=== PATIENT | male | born 1955 | race Caucasian/White ===

== ENCOUNTER 2018-08-31 14:17 | Outpatient (CLI) | payer MEDICARE, OTHER ==
[2018-08-31 17:41] LABS: #Basophils 0.1 thou/uL (0.0-0.2); #Eosinphils 0.5 thou/uL (0.0-0.7); #Lymphocytes 2.5 thou/uL (1.20-3.40); #Monocytes 0.8 thou/uL (0.11-0.59); %Basophils 1.3 % (0.0-1.0); %Eosinophils 6.1 % (0.0-10.0); %Lymphocytes 27.9 % (21.0-51.0); %Monocytes 8.6 % (0.0-10.0); %Neutrophils 56.1 % (42.0-75.0); Mean Corpuscular HGB CONC 33.7 g/dL (32.0-36.0); Mean Corpuscular Hemoglobin 31.9 pg (27.0-31.0); Mean Corpuscular Volume 94.6 fL (78.0-98.0); Mean Platelet Volume 7.8 fL (7.4-10.4); Platelet Count 297 thou/uL (130-400); RBC Distribution Width 11.6 % (11.5-14.5); White Blood Cell (WBC) Count 8.9 thou/uL (4.8-10.8)
[2018-08-31 18:02] LABS: ALT (SGPT) 32 U/L (8-55); AST (SGOT) 23 U/L (5-34); Albumin 4.5 g/dL (3.4-4.8); Alkaline Phosphatase 138 U/L (40-150); Anion Gap 13 mmol/L (10-20); BUN (Urea Nitrogen) 11 mg/dL (8.4-25.7); Bilirubin, Total 0.2 mg/dL (0.2-1.2); Calc. Creatinine Clearance 0 mL/min (70-130); Calcium 9.4 mg/dL (7.8-10.44); Carbon Dioxide 24 mmol/L (23-31); Chloride 107 mmol/L (98-107); Estimated GFR-MDRD Greater than 90; Globulin 3.2 g/dL (2.4-3.5); Glucose 92 mg/dL (80-115); Potassium 3.9 mmol/L (3.5-5.1); Protein, Total 7.7 g/dL (5.8-8.1); Sodium 140 mmol/L (136-145)
== END 2018-08-31 14:18 | disposition home or self-care (01) ==
LOC: LABBT 14:17
PROVIDERS: ATTEND Internal Medicine Cardiovascular Disease
DX: Z01.812 Encounter for preprocedural laboratory examination (principal); R94.39 Abnormal result of other cardiovascular function study
CPT/HCPCS: 80053; 85025

== ENCOUNTER 2018-09-03 05:47 | Day surgery (SDC) | payer MEDICARE, OTHER ==
[2018-09-03 07:20] LABS: INR-International Normal Ratio 1.6; PTT 31.2 SEC (22.9-36.1)
[2018-09-03] MEDS ORDERED: Lidocaine 1% (PF) 30 ML VIAL ONE (07:33)
[2018-09-03] MEDS ORDERED: Midazolam HCl 2 mg/2 ml Vial ONE (08:00)
[2018-09-03] MEDS ORDERED: Fentanyl 100 MCG/2 ML VIAL ONE (08:00)
[2018-09-03] MEDS ORDERED: Heparin 10,000 UNITS/1 ML VIAL ONE (08:21)
[2018-09-03] MEDS ORDERED: Iopamidol 370 76% 50 ML VIAL FS ONE (15:47)
[2018-09-03] MEDS ORDERED: Iopamidol 370 76% 100 ML VIAL ONE (15:47)
== END 2018-09-03 12:00 | disposition home or self-care (01) ==
LOC: CCL 05:47 → EEVIPCON 16:15
PROVIDERS: ATTEND Internal Medicine Cardiovascular Disease
PROC: 4A023N7 Measurement of Cardiac Sampling and Pressure, Left Heart, Percutaneous Approach (ICD-10-PCS; principal; 2018-09-03)
PROC: B2111ZZ Fluoroscopy of Multiple Coronary Arteries using Low Osmolar Contrast (ICD-10-PCS; 2018-09-03)
DX: I25.10 Atherosclerotic heart disease of native coronary artery without angina pectoris (principal); E78.5 Hyperlipidemia, unspecified; G40.109 Localization-related (focal) (partial) symptomatic epilepsy and epileptic syndromes with simple partial seizures, not intractable, without status epilepticus; F17.210 Nicotine dependence, cigarettes, uncomplicated; Z86.718 Personal history of other venous thrombosis and embolism; Z86.73 Personal history of transient ischemic attack (TIA), and cerebral infarction without residual deficits; Z79.01 Long term (current) use of anticoagulants; Z79.82 Long term (current) use of aspirin; Z79.899 Other long term (current) drug therapy
CPT/HCPCS: 36415; 76942; 85347; 85610; 85730; 93458; 93571; C1760; C1769; C1887; J0153; J1644; J2001; J2250; J3010; Q9967

== ENCOUNTER 2018-10-04 20:24 | Inpatient (IN) | payer MEDICARE, OTHER ==
--- NOTE | 2018-10-04 22:00 | CT ---
CT Chest Abd Pelvis WO Con HISTORY: Patient with a history of bladder cancer. Brain metastases and possible lung mass. COMPARISON: None. FINDINGS: There is a right upper lobe lung mass measuring approximately 1.8 cm in size. There are sma ll blebs seen in both lung apices. There is some reticular scarring within the right and left lung bases. No pleural effusions are demonstrated. Changes of centrilobular emphysema are noted. The lack of IV contrast degrades detail but no significant mediastinal or hilar adenopathy is seen. C oronary artery calcifications are present. CT of abdomen performed without contrast enhancement: There is residual contrast seen related to a CT done at outside facility. Due to the time frame from the contrast administration assessment of liver is limited but no masses are seen. The spleen pancreas and gallbladder regions appear unremarka ble. Vicarious excretion of contrast within the gallbladder is noted. Right and left adrenal glands are normal in appearance. The right and left kidneys are normal in size . An exophytic mid pole left renal cyst is noted. An IVC filter is present. Small subcentimeter periaortic lymph nodes are seen. No significant mesenteric lymphadenopathy. CT of pelvis performed without contrast: There is contrast within the bladder from the previous CT ex amination. No bladder mass is identified. Prostate is mildly prominent. No pelvic lymphadenopathy or mass. There is scoliotic change to the spine. IMPRESSION: 1. 1.8 cm right upper lobe lung mass very suspicious for neoplasm. 2. Centrilobular emphysema. Other incidental findings as noted above.
[2018-10-05 01:49] VITALS: BMI 23.7
[2018-10-05] MEDS ORDERED: Calcium Carbonate 500 MG ChewTAB PO PRN (04:19)
[2018-10-05] MEDS ORDERED: Ondansetron ODT 4 MG TAB PO PRN (04:19)
[2018-10-05] MEDS: Sodium Chloride 0.9% 1,000 ML IV SCH ×2 (04:45→19:51)
[2018-10-05 04:51] LABS: #Lymphocytes 1.5 thou/uL (1.20-3.40); #Monocytes 0.7 thou/uL (0.11-0.59); #Neutrophils 6.2 thou/uL (1.40-6.50); %Basophils 0.6 % (0.0-1.0); %Eosinophils 0.6 % (0.0-10.0); %Lymphocytes 18.1 % (21.0-51.0); %Monocytes 7.8 % (0.0-10.0); Hemoglobin 14.1 g/dL (14.0-18.0); Mean Corpuscular HGB CONC 33.6 g/dL (32.0-36.0); Mean Corpuscular Hemoglobin 31.5 pg (27.0-31.0); Mean Corpuscular Volume 93.9 fL (78.0-98.0); Mean Platelet Volume 7.8 fL (7.4-10.4); Platelet Count 283 thou/uL (130-400); RBC Distribution Width 11.5 % (11.5-14.5); Red Blood Cell (RBC) Count 4.48 mill/uL (4.70-6.10); White Blood Cell (WBC) Count 8.5 thou/uL (4.8-10.8)
[2018-10-05 04:56] LABS: INR-International Normal Ratio 2.6; PTT 37.7 SEC (22.9-36.1); Prothrombin Time 27.6 SEC (12.0-14.7)
[2018-10-05 05:13] LABS: ALT (SGPT) 16 U/L (8-55); AST (SGOT) 21 U/L (5-34); Alkaline Phosphatase 123 U/L (40-150); Anion Gap 12 mmol/L (10-20); BUN (Urea Nitrogen) 12 mg/dL (8.4-25.7); Bilirubin, Total 0.3 mg/dL (0.2-1.2); Calc. Creatinine Clearance 137 mL/min (70-130); Calcium 9.1 mg/dL (7.8-10.44); Carbon Dioxide 22 mmol/L (23-31); Chloride 108 mmol/L (98-107); Estimated GFR-MDRD Greater than 90; Globulin 2.8 g/dL (2.4-3.5); Glucose 93 mg/dL (80-115); Magnesium 2.1 mg/dL (1.6-2.6); Potassium 4.3 mmol/L (3.5-5.1); Protein, Total 6.8 g/dL (5.8-8.1); Sodium 138 mmol/L (136-145)
[2018-10-05] MEDS ORDERED: Dexamethasone 4 mg/ml Vial ONE ×2 (05:31→12:06)
[2018-10-05] MEDS: Dexamethasone 4 mg/ml Vial SLOW IVP SCH ×4 (05:34→23:27)
[2018-10-05] MEDS: Acetaminophen 325 MG TAB PO PRN (09:40)
[2018-10-05] MEDS ORDERED: Acetaminophen 325 MG TAB ONE (09:41)
--- NOTE | 2018-10-05 09:51 | HP ---
PRIMARY CARE PHYSICIAN: Dr. Corky Overton at [facility]. CHIEF COMPLAINT: Patient is a transfer from [facility] Emergency Department for abnormal imaging. CHIEF COMPLAINT: Blurriness of vision. HISTORY OF PRESENT ILLNESS: The patient is a 63-year-old male with history of CVA, on anticoagulation; seizure disorder; bladder cancer; presented to [facility] with blurriness of vision that started 1 day ago. It was sudden in onset. He was unable to focus on an object. He had mild headache that has resolved. No double vision, facial asymmetry, weakness of any of his extremities reported. No recent injuries or fall reported. PAST MEDICAL HISTORY: 1. History of cerebrovascular accident. 2. Seizure disorder. 3. Gastroesophageal reflux disease. 4. Hyperlipidemia. 5. Bladder cancer. 6. Chronic venous ulcer in the left foot that has healed. 7. Benign prostatic hypertrophy. PAST SURGICAL HISTORY: 1. Right knee surgery. 2. Cystoscopy. ALLERGIES: NO KNOWN DRUG ALLERGIES. CURRENT HOME MEDICATIONS: Family to bring the accurate list of medications. He is also on Coumadin and Dilantin. Dosages unavailable. SOCIAL HISTORY: Patient has a [id number] smoking history. Continues to smoke up to one pack a day. No alcohol or drug use reported. He lives at home with his family. FAMILY HISTORY: Negative for premature coronary artery disease. REVIEW OF SYSTEMS: All other review of systems was reviewed and was found negative. PHYSICAL EXAMINATION: VITAL SIGNS: Showed temperature 97.8, respirations 20, pulse rate of 68, blood pressure of 150/89 with O2 saturation 96% on room air. GENERAL: 63-year-old male, in no apparent distress. HEENT: Head, atraumatic and normocephalic. Sclerae anicteric. Pupils 3 mm bilaterally. His vision was 20/200 in the left eye and 20/200 in the right eye at [facility]. No oral lesion appreciated. NECK: Supple. No JVD appreciated. No carotid bruit. LUNGS: Clear to auscultation bilaterally. No wheezing, rales, or rhonchi. HEART: S1, S2 present. Regular rate and rhythm. No rubs or gallops. ABDOMEN: Soft, nontender. Bowel sounds present. EXTREMITIES: No edema or calf tenderness. NEUROLOGY: Patient has history of CVA with left-sided weakness. No new focal findings appreciated. He has chronic facial droop and speech deficit per patient report. PSYCHIATRY: Patient is alert, awake, and oriented x3. SKIN: Warm and dry. LYMPH NODE: No palpable lymph nodes in the neck. PERIPHERAL VASCULAR: Radial pulses palpable bilaterally. MUSCULOSKELETAL: No joint swelling or tenderness. LABORATORY FINDINGS: Lab findings from [facility]; WBC was 8.9 with hemoglobin 14.6, hematocrit 43.6, platelet count of 281. Chemistry showed sodium 142, potassium 4.3, chloride 107, bicarb 28, BUN 12, creatinine 0.7. INR was 2.7. Dilantin level was 15.9. EKG by my review showed sinus rhythm without significant ST-T wave changes. CT scan of the brain without contrast showed findings concerning for left occipital lobe mass with vasogenic edema within the white matter. He also has an old right MCA infarct. Chest x-ray at [facility] showed right apical lung mass. CT scan of the chest, abdomen, and pelvis done at this facility showed 1.8 cm right upper lobe lung mass, very suspicious for neoplasm with centrilobular emphysema. IMPRESSION: 1. Visual deficit secondary to left occipital lobe brain mass with vasogenic edema. 2. Right upper lobe lung mass of 1.8 cm concerning for neoplasm. 3. 18-[id number]-pyyd smoking history. 4. 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 5. Seizure disorder, on Dilantin. 6. History of bladder cancer. 7. Benign prostatic hypertrophy. 8. Gastroesophageal reflux disease. 9. Hyperlipidemia. PLAN: The patient will be monitored in oncology floor. Home medications will be verified with the family when they arrive. Coumadin will be held. We will consult Neurosurgery, Pulmonary, as well as Ophthalmology. Neuro checks q.4 hourly. Dexamethasone has been started. We will continue dexamethasone 4 mg q.6 hourly, Protonix 40 mg p.o. daily. We will keep him n.p.o. There was no active bleeding on the CT scan of the brain. We will discuss with Neurosurgery if warfarin needs to be reversed. Plan of care was discussed with the patient in detail. He stated understanding. Job ID: [id number]
--- NOTE | 2018-10-05 10:14 | MRI ---
EXAM: MRI of the brain without and with contrast HISTORY: Left-sided weakness. History of stroke. History of bladder cancer. COMPARISON: CT brain 04/06/2009 TECHNIQUE: Multiplanar multisequence MR images were obtained of the brain without and with IV contras t. FINDINGS: There is a large area of encephalomalacia involving the right frontal, parietal, and temporal lobes c onsistent with a right MCA distribution infarction. There is a 3.7 cm heterogeneously enhancing mass in the left parieto-occipital region with surroundin g vasogenic edema. No significant midline shift or downward herniation. No restricted diffusion. No hydronephrosis. No extra-axial fluid collection or intracranial hemorrhage. The right internal carotid artery flow void is absent. Corpus callosum, pituitary, and craniocervical junction are within normal limits. The calvarium and overlying soft tissues are unremarkable. Mucosal thickening is seen in the paranasal sinuses. A small amount of fluid is seen in the bilateral mastoid air cells. IMPRESSION: 1. Enhancing mass in the left parieto-occipital region likely represents a metastatic lesion to the b rain 2. Remote right MCA distribution infarction
--- NOTE | 2018-10-05 14:00 | PRG ---
DATE OF SERVICE: 10/05/2018 I reviewed the case with Mika An yesterday when he is in [facility]. He has not been fully admitted to the hospital yet remains in the emergency department. I reviewed his imaging and I am concerned that he has metastatic lesion in the parieto-occipital region in the left hemisphere. There is some surrounding vasogenic edema. I believe this is lung cancer as there is a right upper lobe lesion in the lung. Of course, the lung lesion, the mediastinal adenopathy and the brain all could be metastatic from elsewhere, but the chances are it is from the lung. I am going to follow up with the patient tomorrow and discuss surgical intervention for the lesion this week. Job ID: [id number]
--- NOTE | 2018-10-05 15:43 | PRG ---
DATE OF SERVICE: 10/05/2018 SUBJECTIVE: The patient is seen and examined at the bedside. He is still in the emergency room 17. He is feeling significantly better. His visual problem is improved to his baseline. He does not have any chest pain. He does not have any headache. OBJECTIVE: VITAL SIGNS: Blood pressure is 117/62, pulse is 70, and respiratory rate is 15. HEENT: Eyes; pupils are responding to light properly. Sclerae are nonicteric. Conjunctivae are pinkish. He has left-sided droop. NECK: Supple. LUNGS: Clear. HEART: S1 and S2 normal. No S3. No S4. ABDOMEN: Soft, nontender, and nondistended. EXTREMITIES: No clubbing or cyanosis. There is 1+ peripheral edema over the left lower extremity. NEUROLOGIC: He follows my commands. He has left facial droop. His left-sided is paralyzed with minimal function of the left upper extremity and no function of the left lower extremity. LABORATORY DATA: White count of 8.5, hemoglobin 14.1, hematocrit 42.1, platelet count is 283,000. INR is 2.6, PT is 27.6, APTT 37.7. Sodium of 138, potassium 4.3, chloride 108, CO2 of 22, BUN 12, and creatinine 0.68. The rest of chemistry is within normal limits. IMPRESSION: 1. Visual defect, most likely secondary to swelling of the brain and mass-effect of occipital lobe brain mass, pain, resolved. 2. Right upper lobe lung mass concerning for neoplasm. 3. History of right middle cerebral artery with left-sided hemiplegia, on anticoagulation. 4. Seizures secondary to cerebrovascular accident, on Dilantin. 5. History of bladder cancer. 6. Benign prostatic hypertrophy. 7. Gastroesophageal reflux disease. 8. Hyperlipidemia. PLAN: We will hold his Coumadin until it is clear whether he will have biopsy done of this right lung mass. We will continue his Dilantin at 200 mg in the morning and 300 mg at bedtime to obtain the level of Dilantin. We will continue his dexamethasone 4 mg every 6 hours IV push. The patient was seen by Dr. Baldwin for neurosurgical evaluation. He will still have evaluation by referral specialist, oncologist, and cast iron drain pipe layer. We will continue gentle hydration. Job ID: [id number]
--- NOTE | 2018-10-05 18:06 | CON ---
DATE OF CONSULTATION: 10/05/2018 REASON FOR CONSULTATION: 1.5 cm right upper lobe mass. HISTORY OF PRESENT ILLNESS: The patient is a 63-year-old male, who comes to the hospital last night after having an episode of blindness that has since resolved. He had an MRI of the head which showed an occipital mass on the left side. As part of the workup, he had a CT of the chest, abdomen, pelvis. He is found to have a 1.5 cm mass in the right upper lobe peripherally. The patient has a long history of smoking. He is currently smoking about a pack per day, but has smoked up to two packs per day in the past. He has a history of bladder cancer, but that was back in 2001 and he says that has been in remission. PAST MEDICAL HISTORY: 1. Cerebrovascular accident. 2. Seizure disorder. 3. Gastroesophageal reflux. 4. Hyperlipidemia. 5. Bladder cancer. 6. Chronic venous ulcer, left foot. 7. Benign prostatic hypertrophy. PAST SURGICAL HISTORY: 1. Knee surgery. 2. Cystoscopy. 3. Bladder biopsy. ALLERGIES: NONE. MEDICATIONS: Prior to admission, Coumadin and Dilantin. The Coumadin is apparently taken for previous history of a blood clot in the left lower extremity. SOCIAL HISTORY: He has a 50+ pack-year history of smoking. Continues to smoke one pack per day. Lives at home with his . FAMILY MEDICAL HISTORY: Remarkable for heart disease, but has no history of cancer. REVIEW OF SYSTEMS: He had a brief episode of blindness. No hemoptysis, melena, hematochezia, hematuria, dysuria. He has a left-sided hemiparesis from previous stroke. Remainder of 12-point review of systems negative. PHYSICAL EXAMINATION: VITAL SIGNS: Temperature 97.8, respirations 20, pulse 68, blood pressure 150/89, O2 saturation 96% on room air. GENERAL: The patient is awake and alert, and in no distress. HEENT: Pupils are react. Sclerae icteric. Oropharynx, he has slight tongue protrusion to the left. NECK: No adenopathy or JVD. CHEST: Clear to auscultation without wheezing or rhonchi. CARDIAC: S1 and S2 regular without audible murmur. ABDOMEN: Soft, nontender, and nondistended. EXTREMITIES: No clubbing, cyanosis, or edema. He has almost absent motor strength of the left leg and left arm and 5/5 on the right. LABORATORY DATA: White blood cell count 8.5, hematocrit 42.1, and platelet count 283. INR is 2.6. Sodium 138, potassium 4.3, chloride 108, CO2 of 22, BUN 12, creatinine . The CT of the chest was reviewed by me personally. ASSESSMENT: 1. Left occipital brain mass. 2. 1.5 cm right upper lobe lung mass without mediastinal adenopathy. 3. Tobacco abuse. 4. Previous stroke. 5. Currently anticoagulated. PLAN: 1. I am waiting for Neurosurgery recommendations regarding the brain mass. If the brain mass is going to be a biopsy that would be the easiest way to get tissue diagnosis as this may very well be a metastasis from the lung lesion. 2. If the lung needs to be biopsied, this will need to be done with CT needle biopsy from perhaps a supraclavicular approach. I do not think I could get to this with bronchoscopy. Of course, any type of biopsy would necessitate discontinuation and correction of his current anticoagulation state. Thank you for the referral. We will follow. Job ID: [id number]
--- NOTE | 2018-10-05 19:38 | CON ---
DATE OF CONSULTATION: REASON FOR CONSULTATION: Brain mass. HISTORY OF PRESENT ILLNESS: Mr. An is a 63-year-old gentleman with past medical history of CVA and seizure disorder, bladder cancer in 2003, who presented to the [facility] with change in vision started several days ago. He had a CT of the brain, which showed a probable brain mass. He was transferred to this facility for further workup. He underwent a brain MRI, which showed a 3.7 cm heterogeneous enhancing mass in the left parietal occipital region with surrounding vasogenic edema. There was a large area of encephalomalacia from his right MCA infarction. He also underwent a chest, abdomen, and pelvis CT. There was a right upper lobe mass measuring 1.8 cm with small blebs throughout both lungs. The patient does have a history of smoking 1 to 2 packs over the last 50 years. He continues to smoke a pack of cigarettes despite his prior stroke. Neurosurgery and Pulmonary have been consulted. He has been given IV steroids with resolution of his symptoms. PAST MEDICAL HISTORY: 1. Bladder cancer, treated by Dr. Mercedes at [facility]. 2. Right MCA infarct. 3. Seizure disorder. 4. Reflux disease. 5. Hyperlipidemia. 6. Chronic venous ulcer of left foot. 7. BPH. PAST SURGICAL HISTORY: 1. Right knee surgery. 2. Cystoscopy. ALLERGIES: NO KNOWN DRUG ALLERGIES. HOME MEDICATIONS: 1. Aspirin 81 mg daily. 2. Atorvastatin 80 mg daily. 3. Baclofen 10 mg b.i.d. 4. Protonix 40 daily. 5. Dilantin 100 mg in the morning and 400 at night. 6. Coumadin 5 mg daily. FAMILY HISTORY: Brother from lung cancer. He was a smoker. He had another brother from pancreatic cancer. SOCIAL HISTORY: , lives with his spouse. No alcohol or illicit drug use. Continues to smoke a pack a day. REVIEW OF SYSTEMS: CONSTITUTIONAL: No fever, chills, or night sweats. HEENT: Eyes; positive for blurred and double vision. ENT; no pain, hoarseness, sore throat, or dysphagia. CV: No chest pain, palpitations, or syncope. RESPIRATORY: No shortness of breath, dyspnea on exertion, orthopnea, or hemoptysis. GI: No nausea, vomiting, diarrhea, constipation, or abdominal pain. : No dysuria or hematuria. MUSCULOSKELETAL: No joint or back pain. SKIN: No rash or pruritus. HEMATOLOGIC: No bleeding or bruising. NEUROLOGIC: Positive for blurred vision and left hemiparesis. PHYSICAL EXAMINATION: VITAL SIGNS: Temperature is 97.8, pulse is 69, respiratory rate 17, blood pressure is 134/75, and he is 97% on room air. GENERAL: This is a chronically well-developed, well-nourished male, in no acute distress. HEENT: Normocephalic and atraumatic. Pupils are equal and reactive to light. NECK: Supple. CV: Regular rate and rhythm. LUNGS: Clear anterior. ABDOMEN: Soft and nontender. Bowel sounds are positive. EXTREMITIES: No clubbing or cyanosis. SKIN: No rash. HEMATOLOGIC: No petechiae or purpura. NEUROLOGIC: He has a facial droop with left hemiparesis. PSYCHIATRIC: He is alert and oriented. PERTINENT LABORATORY DATA AND X-RAYS: Current WBCs are 8.5, hemoglobin 14.1, hematocrit 42.1, platelet count is 283,000, 73% neutrophils, 18% lymphocytes. PT is 27.6, INR is 2.6, and PTT is 37.7. Sodium is 138, potassium 4.3, chloride 108, CO2 is 22, BUN is 12, creatinine 0.68, calcium is 9.1, magnesium 2.1. Bilirubin 0.3 , AST is 21, ALT is 16, alkaline phosphatase is 123. Serum total protein 6.8, albumin 4.0, and globulin 2.8. ASSESSMENT: 1. Metastatic disease with left occipital lobe brain mass and right upper lobe lung mass. 2. History of tobacco abuse. 3. 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 4. Anticoagulation. DISCUSSION: Findings were discussed with the patient and at bedside. Tissue diagnosis is needed for further treatment recommendations. We will await for Neurosurgery and Dr. Esquivel's opinion. If no neurosurgical intervention is recommended, he would likely need a CT-guided biopsy of the right upper lobe lung mass. Further recommendations based on final pathology. Thank you for the consult. We will follow along with his hospital course. Job ID: [id number] MTDD
[2018-10-06] MEDS: Dexamethasone 4 mg/ml Vial SLOW IVP SCH ×4 (05:16→23:50)
[2018-10-06 05:41] LABS: #Lymphocytes 1.6 thou/uL (1.20-3.40); #Monocytes 0.7 thou/uL (0.11-0.59); #Neutrophils 10.7 thou/uL (1.40-6.50); %Basophils 0.3 % (0.0-1.0); %Eosinophils 0.2 % (0.0-10.0); %Lymphocytes 12.2 % (21.0-51.0); %Monocytes 5.4 % (0.0-10.0); %Neutrophils 81.9 % (42.0-75.0); Hemoglobin 13.9 g/dL (14.0-18.0); Mean Corpuscular HGB CONC 34.9 g/dL (32.0-36.0); Mean Corpuscular Volume 94.4 fL (78.0-98.0); Mean Platelet Volume 8.4 fL (7.4-10.4); Platelet Count 267 thou/uL (130-400); RBC Distribution Width 11.5 % (11.5-14.5); Red Blood Cell (RBC) Count 4.21 mill/uL (4.70-6.10)
[2018-10-06 06:06] LABS: Anion Gap 11 mmol/L (10-20); BUN (Urea Nitrogen) 9 mg/dL (8.4-25.7); Calc. Creatinine Clearance 146 mL/min (70-130); Calcium 9.1 mg/dL (7.8-10.44); Carbon Dioxide 22 mmol/L (23-31); Chloride 109 mmol/L (98-107); Estimated GFR-MDRD Greater than 90; Glucose 111 mg/dL (80-115); Potassium 3.7 mmol/L (3.5-5.1); Sodium 138 mmol/L (136-145)
--- NOTE | 2018-10-06 07:50 | PRG ---
DATE OF SERVICE: 10/06/2018 SUBJECTIVE: The patient is doing about the same. He wants to go home. OBJECTIVE: VITAL SIGNS: Temperature 97.8, pulse , respirations 18, O2 saturation 95%, blood pressure 130/76. HEENT: Unremarkable. NECK: No adenopathy or JVD. LUNGS: Coarse breath sounds. CARDIAC: S1, S2. Regular. ABDOMEN: Soft. EXTREMITIES: No edema. LABORATORY DATA: White blood cell count 13, hematocrit 39.8, and platelet count 267. Sodium 138, potassium 3.7, chloride 109, CO2 of 22, BUN 9, creatinine 0.6, glucose 111. ASSESSMENT: 1. Occipital brain mass with transient vision loss yesterday. 2. Right upper lobe 1.5 cm lung mass. PLAN: If brain biopsy is planned, then he would not need a CT needle of the chest. If for some reason he would not go through the brain biopsy, then he need a CT needle of the chest. Before that, he would need correction of his PT and INR. I will get his PT and INR checked tomorrow morning. Job ID: [id number]
[2018-10-06] MEDS: Sodium Chloride 0.9% 1,000 ML IV SCH ×2 (08:40→23:51)
--- NOTE | 2018-10-06 09:37 | CON ---
DATE OF CONSULTATION: HISTORY OF PRESENT ILLNESS: Mr. An is a 63-year-old male, who I saw at [facility] and transferred to [facility]. Mr. An was brought to the Emergency Department last night following some blurry vision, loss of vision, confusion. The night before last, he had trouble finding his fork that was on his plate and then yesterday, could not find his cigarettes that were sitting on the table next to him. This prompted the to bring him to the Emergency Department. The patient does have a history of significant right-sided ischemic stroke leaving him with left-sided paralysis, left upper extremity contracture, left lower extremity . He also has history of bladder cancer in 2000, treatment and bladder scraping . No followup in the last several years for that. When I see Mr. An, he is resting comfortably in the ER room. He denies any blurry vision. When I see him, he states he can see me clearly. He has some nystagmus with lateral and vertical eye movements. The patient has normal range of motion in his right upper and lower extremity. 5/5 strength on the right. Cranial nerves are tested intact, except for some facial droop and decreased shoulder shrug on the left. Memory is intact. He is alert and oriented. Speech is spontaneous and fluent. Neurosurgery was consulted due to a newfound brain lesion. Given this as a new onset, full workup for the cause needed to be done. He was transferred to [facility] REVIEW OF SYSTEMS: A 10-point review of systems has been completed and is negative other than stated in the above HPI. PAST MEDICAL HISTORY: Cardiovascular accident, DVT, seizures, and bladder cancer in 2000. PAST SURGICAL HISTORY: Knee surgery and right bladder scraping. MEDICATIONS: 1. Coumadin. 2. Dilantin. 3. Baclofen. ALLERGIES: NO KNOWN DRUG ALLERGIES. SOCIAL HISTORY: The patient is a current smoker. Lives with his , who is his primary caregiver. PHYSICAL EXAMINATION: CONSTITUTIONAL: The patient is alert and oriented x3. He is normotensive and afebrile. Does not appear to be in any visible distress. HEENT: Head is normocephalic and atraumatic. Pupils are equal, round, and reactive to light. Extraocular movements are intact. Hearing is intact. Moist mucous membranes. Slight facial droop on the left. RESPIRATIONS: Normal work of breathing on room air. Symmetric chest rise. EXTREMITIES: Normal range of motion in right upper and lower extremity. Left upper and lower extremity paralysis. Contractures of right upper extremity. Decreased sensation in the left upper extremity. Intact sensation in left lower extremity 5/5 strength in deltoids, biceps, triceps, and machine inker strength. Lower extremity, 5/5 hip flexion, hip extension, knee flexion, knee extension, dorsiflexion, and plantar flexion. NEUROLOGIC: The patient is awake, alert, and oriented x3. Pupils are equal, round, and reactive to light. Cranial nerves are tested and intact. There is a facial droop on the left side as well as nystagmus and decreased shoulder shrug on the left. Memory, attention, and fund of knowledge are normal. Speech is spontaneous and fluent. Left-sided paralysis. IMAGING: CT scan of head shows left occipital mass with enhancement. Chest x-ray showed a questionable mass. ASSESSMENT AND PLAN: Mr. An is a 63-year-old male, who has a known left occipital brain lesion . He needs to have workup for this new possible with metastasis to the brain. Recommend hospitalist admit. Consult with us and Oncology. Decadron last night, and we will continue that q.6. We will get a MRI with and without contrast with [facility] protocol of the brain. If there are any other questions, please contact Neurosurgery. Job ID: [id number]
[2018-10-06 09:49] LABS: INR-International Normal Ratio 1.5; Prothrombin Time 17.9 SEC (12.0-14.7)
--- NOTE | 2018-10-06 12:12 | PRG ---
DATE OF SERVICE: 10/06/2018 I personally interviewed and examined the patient. I agreed with documentation of Shereen Domínguez PA-C, dated 10/04 and 10/05/2018. Briefly, Mika An is a 63-year-old gentleman, who presented to outside hospital with loss of vision on the right side. He was transferred when brain imaging revealed a lesion causing pressure on the parieto-occipital cortex on the left side. He has been entire day yesterday in the emergency department, but is now in his hospital room. He still has no vision in the right visual field. He does not feel any difference from his admission. 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 CT of the chest, abdomen, and pelvis revealed the right upper lobe lung lesion and some mediastinal adenopathy. The patient has a history of bladder cancer, but he said it was treated with medication and this was nearly a decade ago and has been no recurrence to his knowledge. I strongly believe the occipital lobe lesion is related to the similar lesion in the lung. It is either a primary lung cancer with metastasis or these are 2 metastases from an unknown primary. I offered Mr. An a surgical intervention tomorrow afternoon. I told him I thought his improvement in vision would be a little bit faster and perhaps more reliable with surgical intervention, then radiation. The radiation as lower procedure risk, it include off from benefits slowly over time. I think either would control the tumor. The advantage of surgery is also by histopathological diagnosis. He would like to discuss with his and here with Dr. Cade has to say. We will make him n.p.o. after midnight tonight. We will have him sign consent of that how he would like to proceed. We will order antibiotics for surgery and we will schedule a BrainLAB stereotactic assisted craniotomy for tumor resection tomorrow. We will cancel it if he chooses otherwise. Informed Consent: I discussed indications, risks, benefits, alternatives, expected outcomes from surgery. The risks we discussed included, but were not limited to , worsening vision, seizure, stroke, paralysis, dependence for care, hemorrhage, cardiopulmonary complications of anesthesia and . He understands all the risks and is going to discuss with his . Job ID: [id number] MTDD
--- NOTE | 2018-10-06 12:33 | PRG ---
DATE OF SERVICE: 10/06/2018 SUBJECTIVE: The patient was seen and examined at the bedside. He does not have much complaints to offer, and he noticed that his vision is cleared. This was the main concern he had prior to this hospitalization. OBJECTIVE: VITAL SIGNS: Blood pressure is 130/76, temperature is 97.8, pulse is 72, respiratory rate is 18, and O2 saturation is 95% on room air. HEENT: His head is atraumatic and normocephalic. Pupils are responding to light properly. Sclerae are nonicteric. Conjunctivae pinkish. Oral mucosa is moist. NECK: Supple. LUNGS: Clear. HEART: S1, S2 normal. No S3. No S4. ABDOMEN: Soft, nontender, nondistended. EXTREMITIES: No clubbing, cyanosis, or edema. NEUROLOGIC: It looks like he has some memory lapse, when I ask him specific question, takes significantly prolonged time before he responds if any. He is able to move his all 4 extremities. IMPRESSION: 1. Visual defect, resolved, after he was started on IV steroids. Most likely, this was related to his brain mass and swelling effect. 2. Right upper lobe lung mass, concerning for neoplasm. 3. 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 4. Seizuresm, secondary to cerebrovascular accident, on Dilantin. 5. History of bladder cancer. 6. Benign prostatic hypertrophy. 7. Gastroesophageal reflux disease. 8. Hyperlipidemia. PLAN: The patient was seen by Dr. Baldwin, and he recommends to do surgery with biopsy, which is scheduled for tomorrow morning. We will continue his Dilantin for now. The patient also was seen by Oncology Team and Pulmonary. We are waiting for the biopsy results and operation, and we will continue dexamethasone IV push every 6 hours and continue gentle hydration. Job ID: [id number]
[2018-10-06] MEDS ORDERED: Phytonadione 10 MG in Sodium Chloride 0.9% 50 ML IVPB SCH (14:15)
[2018-10-06 15:17] LABS: INR-International Normal Ratio 1.3; PTT 26.2 SEC (22.9-36.1); Prothrombin Time 16.4 SEC (12.0-14.7)
[2018-10-07] MEDS: Dexamethasone 4 mg/ml Vial SLOW IVP SCH ×4 (05:33→23:50)
[2018-10-07 07:13] LABS: Prothrombin Time 13.6 SEC (12.0-14.7)
--- NOTE | 2018-10-07 07:16 | PRG ---
DATE OF SERVICE: 10/07/2018 I saw Mr. An and his in his hospital room this morning. His had number of questions about surgical intervention versus radiation for brain metastasis. Thankfully, Mr. An's symptoms have not progressed. He has still got his right homonymous loss of vision, but no other new deficits. I spent number of minutes in answering questions about surgical intervention and radiation, and I think both are reasonable treatments for brain metastasis. The advantage of surgery is a faster decrease in the mass effect and perhaps because of that a faster return of neurological function. Also avoid any radiation-induced swelling around an already reasonably sized tumor. However, radiation swelling could be managed with steroids and the tumor would shrink eventually. The advantage of surgery is the tissue diagnosis. With this information, I am going to continue their thought process. Surgery is arranged for this afternoon. He should remain n.p.o. He likes to proceed and will be taken to the operating room today. Job ID: [id number]
[2018-10-07] MEDS ORDERED: Glycopyrrolate 0.2 MG/ML 5 ML SYRINGE ONE (09:47)
[2018-10-07] MEDS ORDERED: Rocuronium Bromide 10 MG/ML (10ML VIAL) ONE (09:47)
[2018-10-07] MEDS ORDERED: ePHEDrine 50 MG/ML VIAL ONE (09:47)
[2018-10-07] MEDS ORDERED: PROPOFOL 200 MG/20 ML VIAL ONE (09:47)
[2018-10-07] MEDS ORDERED: PHENYLEPHRINE-NS 100 MCG/ML 10 ML SYRINGE ONE (09:47)
[2018-10-07] MEDS ORDERED: Lidocaine 1% PF 5 ML VIAL ONE (09:47)
[2018-10-07] MEDS ORDERED: Dexamethasone 20 MG/5 ML VIAL ONE (09:47)
[2018-10-07] MEDS ORDERED: ceFAZolin Sodium (SDC) 2 GM/100 ML BAG ONE (11:17)
[2018-10-07] MEDS ORDERED: Lidocaine 2% Jelly 5 ML TUBE ONE (11:18)
[2018-10-07] MEDS ORDERED: Fentanyl 250 MCG/5 ML VIAL ONE (11:18)
[2018-10-07] MEDS ORDERED: CEFAZOLIN 2 GM, Admixture Fee 1 EACH in Sodium Chloride 0.9% 100 ML IVPB SCH (12:00)
[2018-10-07] MEDS ORDERED: Thrombin 5000 UNITS/5 ML VIAL ONE (12:05)
[2018-10-07] MEDS ORDERED: Bacitracin Zinc Ointment 30 gm TUBE ONE (12:05)
[2018-10-07] MEDS ORDERED: Lidocaine 0.5%/Epinephrine 1:200,000 50 ml Vial ONE (12:05)
[2018-10-07] MEDS ORDERED: Sodium Chloride 0.9% 20 ML ONE (12:16)
--- NOTE | 2018-10-07 13:27 | PRG ---
DATE OF SERVICE: 10/07/2018 SUBJECTIVE: The patient is seen and examined at the bedside. He is getting ready for his surgery this morning by Dr. Baldwin. OBJECTIVE: VITAL SIGNS: Blood pressure is 118/76, pulse is 63, respirations 18, O2 saturation is 92% on room air, his temperature is 98.1. HEENT: His head is atraumatic and normocephalic. He has left facial droop. Pupils are responding to light properly. Sclerae are nonicteric. NECK: Supple. LUNGS: Clear. HEART: S1 and S2 normal. No S3. No S4. ABDOMEN: Soft, nontender. Bowel sounds are present. No organomegaly. EXTREMITIES: No clubbing, cyanosis, or edema. NEUROLOGICAL: He follows my commands. He moves his 4 extremities, although the left side is significantly paralyzed and the left lower extremity is almost nonfunctional. LABORATORY DATA: INR of 1.0 and PT of 13.6. IMPRESSION: 1. Left parieto-occipital region mass, most likely metastatic lesion to the brain. 2. Right upper lung mass, most likely neoplasm. 3. Visual defect, which almost completely resolved. 4. 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 At this point, obviously Coumadin is stopped. 5. Seizures secondary to cerebrovascular accident, on Dilantin. 6. History of bladder cancer. 7. Benign prostatic hypertrophy. 8. Gastroesophageal reflux disease. 9. Hyperlipidemia. PLAN: He is supposed to have surgery today by Dr. Baldwin. We will continue his Dilantin and keep holding his Coumadin. I will get a tissue diagnosis from surgical specimen. We will continue his dexamethasone IV push, which seems to be helping his visual defect. We will put him back on his atorvastatin and baclofen. Job ID: [id number]
[2018-10-07] MEDS: Sodium Chloride 0.9% 1,000 ML IV SCH (13:28)
[2018-10-07] MEDS ORDERED: Rocuronium Bromide 50 MG/5 ML VIAL ONE ×2 (14:14→15:11)
[2018-10-07] MEDS ORDERED: Sodium Chloride 0.9% 10 ML ONE (14:20)
[2018-10-07] MEDS ORDERED: Promethazine HCl 25 MG/ML VIAL SLOW IVP PRN (15:50)
[2018-10-07] MEDS ORDERED: Ondansetron HCl/PF 4 MG/2 ML Vial IVP PRN (15:50)
[2018-10-07] MEDS ORDERED: Promethazine HCl 25 MG/ML VIAL IM PRN (15:50)
[2018-10-07] MEDS ORDERED: diphenhydrAMINE 50 MG CAP PO PRN (16:28)
[2018-10-07] MEDS ORDERED: Cepastat Lozenges 1 LOZ PO PRN (16:28)
[2018-10-07] MEDS ORDERED: Mag-Al 1200 mg/1200 mg/30 ML UDCUP PO PRN (16:28)
[2018-10-07] MEDS ORDERED: Labetalol HCl 100 MG/20 ML VIAL SLOW IVP PRN (16:28)
[2018-10-07] MEDS ORDERED: hydrALAZINE 20 MG/ML VIAL SLOW IVP PRN (16:28)
[2018-10-07] MEDS ORDERED: Morphine 2 MG/ML SYRINGE SLOW IVP PRN (16:28)
[2018-10-07] MEDS ORDERED: Docusate 100 MG CAP PO PRN (16:28)
[2018-10-07] MEDS ORDERED: Morphine 4 MG/ML VIAL SLOW IVP PRN (16:28)
[2018-10-07] MEDS ORDERED: diphenhydrAMINE 50 MG/ML VIAL IVP PRN (16:28)
[2018-10-07] MEDS ORDERED: Acetaminophen/Codeine 30-300mg Tablet PO PRN (16:31)
[2018-10-07] MEDS ORDERED: hydrALAZINE 20 MG/ML VIAL ONE ×3 (16:45→19:00)
[2018-10-07] MEDS ORDERED: Fentanyl 100 MCG/2 ML VIAL ONE ×2 (17:37→19:16)
[2018-10-07] MEDS ORDERED: Ondansetron PF 4 MG/2 ML Vial ONE (17:40)
[2018-10-07] MEDS: CEFAZOLIN 2 GM in Premix Bag 1 BAG IVPB SCH (20:21)
[2018-10-07] MEDS: Baclofen 10 MG TAB PO SCH (20:22)
[2018-10-07] MEDS: Atorvastatin Calcium 40 MG TAB PO SCH (20:22)
[2018-10-07] MEDS: Ondansetron PF 4 MG/2 ML Vial IVP PRN (20:46)
--- NOTE | 2018-10-07 21:39 | OP ---
DATE OF PROCEDURE: 10/07/2018 DOWNSTREAM BIOMANUFACTURING TECHNICIAN: Shereen Domínguez PA-C. PREOPERATIVE INDICATION: Make diagnosis, prevent neurological deterioration. PREOPERATIVE DIAGNOSIS: Left occipital lesion, likely metastatic. POSTOPERATIVE DIAGNOSIS: Left occipital lesion, likely metastatic. OPERATIVE PROCEDURE: BrainLAB stereotactic assisted craniotomy for resection of left occipital lesion. PREOPERATIVE MEDICATIONS: Ancef 2 g IV. DRAIN NUMBER: Zero. DRAIN TYPE: None. DESCRIPTION OF PROCEDURE: The patient was brought to the operating room. General endotracheal anesthesia was induced. The patient was positioned supine on the operating table. The left shoulder was bumped and the head immobilized with Schaffer pin and home visitor home base head start. Using the preoperative scan, the BrainLAB system and surface landmarks, we registered stereotactic three dimensional space around the patient's head. We verified our registration with surface landmarks and the accuracy was confirmed. Hair was removed from the left side of the posterior scalp with electric clippers. Using our navigation system, we marked out the surface presentation of the tumor and planned a curvilinear incision around it. We infused local anesthetic under a planned incision. The scalp was sterilely prepped and draped. We opened with a 10 blade knife and controlled bleeding with bipolar and monopolar cautery. We used monopolar cautery to fold the scalp flap inferiorly, held in place under fishhooks. Jazmin holes were placed medial and lateral to the tumor and superior to the tumor. We stripped the dura from the undersurface of the cranium with a [place] 3 dissector and then fashioned a small craniotomy using a side-cutting bit and a footplate. We irrigated with bacitracin irrigation. A navigation wand was brought into the field confirming that a craniotomy would give us access to the surface presentation of the tumor. We then opened the dura in a cruciate fashion and the tumor presented itself to the peeled surface. We brought the operative microscope into the field. Under microscopic magnification and using microsurgical techniques, we carefully coagulated the connection between the lesion and the surrounding brain. We developed a plane around it and folded it out of the tumor cavity. We irrigated copiously with bacitracin irrigation. Multiple samples were sent for histopathology. Hemostasis was excellent after resection. We closed the dura in an interrupted fashion and we reattached the bone flap with plates and screws. The operative microscope was taken out of the field. We closed the scalp in anatomical layers. We placed a sterile dressing. The patient was removed from Schaffer pin and head holders and transferred to the transport cart. This was a clean case, no contamination. Job ID: [id number]
[2018-10-08] MEDS: Ondansetron PF 4 MG/2 ML Vial IVP PRN (01:43)
[2018-10-08] MEDS: CEFAZOLIN 2 GM in Premix Bag 1 BAG IVPB SCH (03:43)
[2018-10-08] MEDS: Sodium Chloride 0.9% 1,000 ML IV SCH ×2 (03:43→18:28)
[2018-10-08] MEDS: Dexamethasone 4 mg/ml Vial SLOW IVP SCH ×4 (06:14→23:22)
--- NOTE | 2018-10-08 09:10 | PRG ---
DATE OF SERVICE: 10/08/2018 SUBJECTIVE: Nataliya has no complaints. He is in no distress. He underwent stereotactic-assisted craniotomy and resection of an occipital lesion yesterday successfully. He is extubated. He is in no distress. He is a little dysarthric, but is very pleasant and cooperative. OBJECTIVE: VITAL SIGNS: His blood pressure is 113/60, heart rate is 79, respiratory rate is 16, oximetry is 93. LUNGS: Clear. HEART: Regular rhythm. ABDOMEN: Soft and nontender. EXTREMITIES: Without asymmetry. IMPRESSION: 1. Status post resection of a brain metastasis, awaiting pathological diagnosis. 2. Lung mass, that is small, but likely a primary. I would suspect that this will returned telephone equipment appraiser to be adenocarcinoma. 3. History of cerebrovascular accident and a seizure disorder in the past. 4. History of reflux disease. 5. History of bladder cancer. 6. History of benign prostatic hypertrophy. 7. History of anticoagulation prior to admission. 8. History of deep vein thrombosis. 9. History of heavy smoking. He will need to be watched closely for signs of recurrent deep vein thrombosis. At this point in time, he is stable postoperatively. Pathology will probably not be available till early next week. Job ID: [id number]
[2018-10-08] MEDS: Baclofen 10 MG TAB PO SCH ×2 (09:43→20:15)
[2018-10-08] MEDS: Aspirin 81 mg Enteric Coated Tablet PO SCH (09:43)
[2018-10-08] MEDS: Acetaminophen/Codeine 30-300mg Tablet PO PRN (14:42)
[2018-10-08] MEDS: Acetaminophen 325 MG TAB PO PRN (14:43)
--- NOTE | 2018-10-08 18:03 | PRG ---
DATE OF SERVICE: 10/08/2018 Mr. An is postop day #1 following brain metastasis resection with Dr. Baldwin. His incision is well approximated with no drainage. He reports minimal headache, but otherwise is in good spirits and is very alert in the ICU this morning. We will transition him to the floor deems him ready. He will likely need some inpatient rehab as well before transitioning to home. Job ID: [id number]
--- NOTE | 2018-10-08 18:15 | PDOC.HOSPP ---
- Subjective Subjective: Was awake much of the night. Sleeping this afternoon. No new issues reported by nursing. - Objective Vital Signs & Weight: Vital Signs (12 hours) Temp Pulse Pulse BP BP Pulse Ox Pulse Ox 10/08/18 16:00 98.9 F 10/08/18 12:00 99.1 F 10/08/18 08:56 83 89 112/69 113/67 91 L 10/08/18 08:00 99.1 F 91 L Pulse Ox 10/08/18 16:00 10/08/18 12:00 10/08/18 08:56 89 L 10/08/18 08:00 Weight Weight 194 lb 15.982 oz Most Recent Monitor Data Heart Rate from ECG 68 NIBP 101/62 NIBP BP-Mean 75 Respiration from ECG 27 SpO2 92 I&O: 10/07/18 10/08/18 10/09/18 06:59 06:59 06:59 Intake Total 1150 1258 650 Output Total 1200 560 925 Balance -50 268 -041 Result Diagrams: 10/06/18 04:51 10/06/18 04:51 ROS - Medication Medications: Active Medications Generic Name Dose Route Start Last Admin Trade Name Freq PRN Reason Stop Dose Admin Acetaminophen 650 mg 10/05/18 04:19 10/08/18 14:43 Tylenol PO 650 mg Q4H PRN Administration Headache/Fever/Mild Pain (1-3) Acetaminophen/Codeine Phosphate 1 tab 10/07/18 16:31 10/08/18 14:42 Tylenol #3 PO 1 tab Q4H PRN Administration Moderate Pain (4-6) Aspirin 81 mg 10/08/18 09:00 10/08/18 09:43 Ecotrin PO 81 mg DAILY SHUBHAM Administration Atorvastatin Calcium 80 mg 10/07/18 21:00 10/07/18 20:22 Lipitor PO 80 mg HS SHUBHAM Administration Baclofen 10 mg 10/07/18 21:00 10/08/18 09:43 Lioresal PO 10 mg BID SHUBHAM Administration Dexamethasone 4 mg 10/05/18 06:00 10/08/18 14:35 Decadron SLOW IVP 4 mg Q6HR SHUBHAM Administration Sodium Chloride 1,000 mls @ 70 mls/hr 10/05/18 04:30 10/08/18 03:43 Normal Saline 0.9% IV 1,000 mls .[id number] SHUBHAM Administration Morphine Sulfate 4 mg 10/07/18 16:28 10/08/18 03:42 Morphine SLOW IVP 4 mg Q1H PRN Administration Severe Breakthrough Pain Ondansetron HCl 4 mg 10/05/18 04:19 10/08/18 01:43 Zofran IVP 4 mg Q6H PRN Administration Nausea/Vomiting Pantoprazole Sodium 40 mg 10/05/18 09:00 10/08/18 09:43 Protonix PO 40 mg DAILY SHUBHAM Administration Phenytoin Sodium 200 mg 10/06/18 09:00 10/08/18 09:43 Dilantin Er PO 200 mg QAM SHUBHAM Administration Phenytoin Sodium 300 mg 10/05/18 21:00 10/07/18 20:22 Dilantin Er PO 300 mg QPM SHUBHAM Administration - Exam ENT - other findings: Post op dressing Heart: RRR, no murmur, no gallops, no rubs, normal peripheral pulses Respiratory: CTAB, no wheezes, no rales, no ronchi, normal chest expansion, no tachypnea, normal percussion Gastrointestinal: soft, non-tender, non-distended, normal bowel sounds, no palpable masses, no hepatomegaly, no splenomegaly, no bruit Skin: normal turgor Hosp A/P (1) Brain mass Code(s): G93.89 - OTHER SPECIFIED DISORDERS OF BRAIN Status: Acute (2) Lung mass Code(s): R91.8 - OTHER NONSPECIFIC ABNORMAL FINDING OF LUNG FIELD Status: Acute (3) History of DVT (deep vein thrombosis) Code(s): Z86.718 - PERSONAL HISTORY OF OTHER VENOUS THROMBOSIS AND EMBOLISM Status: Acute (4) Hx of bladder cancer Code(s): Z85.51 - PERSONAL HISTORY OF MALIGNANT NEOPLASM OF BLADDER Status: Acute (5) Hx of seizure disorder Code(s): Z86.69 - PERSONAL HISTORY OF DIS OF THE NERVOUS SYS AND SENSE ORGANS Status: Acute - Plan Post-op resection of the brain mass. Will await path. Rehab recommended by NS. Continue Tamika Wade.
[2018-10-08] MEDS: Atorvastatin Calcium 40 MG TAB PO SCH (20:15)
--- NOTE | 2018-10-08 21:29 | CON ---
DATE OF CONSULTATION: 10/08/2018 REASON FOR CONSULTATION: Mr. An is a 63-year-old gentleman, who clinically appears to have a stage IV lung cancer with metastasis to the brain. I was asked to see him to discuss his treatment options. HISTORY OF PRESENT ILLNESS: Mr. An has a previous history of a cerebrovascular accident, which has caused significant residual left-sided paralysis and weakness. He is in a wheelchair and has a history of seizure disorders. He woke up one morning recently and could not see. He was subsequently seen in the emergency room at [facility], where a CT scan of the head was performed, which suggested a mass in the left occipital area of the brain. He was transferred to [facility] for further workup and evaluation. MRI of the brain was performed, which showed a large area of encephalomalacia consistent with his previous stroke on the right side. He had a 3.7 cm enhancing mass in the left parieto-occipital area of the brain with surrounding vasogenic edema. CT of the chest, abdomen, and pelvis showed a mass in the right upper lobe of the lung, which measured 1.8 cm in size. There was no adenopathy identified. He was subsequently placed on dexamethasone and yesterday underwent a craniotomy by Dr. Enrique with what was felt to be a gross total resection of the left occipital lesion. Pathology from this is currently pending. He reports today that his vision has much improved and is now back to normal. He has some headaches now postoperatively, but denies any headaches prior to his diagnosis. He had no nausea, vomiting, or seizure activity. He has no shortness of breath. He voices no other complaints. PAST MEDICAL HISTORY: 1. CVA 10 years ago. 2. Seizure disorder. 3. Hypercholesterolemia. 4. GE reflux disease. 5. Remote history of bladder cancer in 1982, status post TURBT and treatment with interferon with no evidence of recurrence. 6. History of chronic venous ulcer in the left foot. 7. BPH. 8. Status post ACL repair of the right knee. MEDICATIONS: 1. DuoNeb nebulizers. 2. Lipitor. 3. Tums. 4. Dexamethasone. 5. Protonix. 6. Dilantin. ALLERGIES: NO KNOWN MEDICAL ALLERGIES. SOCIAL HISTORY: The patient does have a 50 pack-year history of smoking. He was smoking up to 1 pack per day until admission, but reports that he is no longer going to smoke. He has no alcohol or drug use. He lives in [place], [place] with his . FAMILY HISTORY: His mother at age 69 with some history of heart disease. His father at age 65 from myocardial infarction. He had a brother, who from lung cancer in his 50s. He had another brother, who from pancreatic cancer in his 50s. There is no other family history of malignancy. REVIEW OF SYSTEMS: Twelve-point review of systems is otherwise negative. PHYSICAL EXAMINATION: VITAL SIGNS: Height 64 inches, weight 194 pounds. Blood pressure is 121/67, pulse is 79, respirations are 27, temperature is 99.1, O2 saturation is 95% on room air. CONSTITUTIONAL: He is alert and oriented and in no apparent distress. Karnofsky performance status is a 40% secondary to a stroke. EYES: Pupils equal, round, and reactive to light. Extraocular movements are intact. ENT: Oral cavity and oropharynx normal without lesion or erythema. Palate elevates symmetrically. Gingiva is intact. NECK: Supple without preauricular, submandibular, cervical, or supraclavicular adenopathy. No thyromegaly. Larynx midline. LUNGS: Breathing nonlabored. Clear to auscultation. HEART: Regular rate and rhythm without murmur. No lower extremity edema. LYMPHATIC: No axillary or inguinal adenopathy. ABDOMEN: Slight distention. No tenderness or mass palpable. Liver percusses to normal size. SKIN: Without rash or purpura. NEUROLOGIC: Cranial nerves 2 through 12 are grossly intact. Motor strength is 5/5 in the right upper extremity. He has no movement in the left upper extremity. In the right lower extremity, motor strength is 5/5 in all muscle groups. In the left lower extremity, his strength is 2/5 at the hip and knee. RADIOLOGIC DATA: CT of the chest, abdomen, and pelvis and MRI of the brain were all personally reviewed. Again, he had a 3.7 cm contrast-enhancing mass in the left parieto-occipital area of the brain with surrounding vasogenic edema. He has a large area on the right of encephalomalacia from his previous stroke. No other lesion was identified. CT shows a 1.8 cm mass in the right upper lobe of the lung. There is no definite evidence of adenopathy or distant metastatic disease. CT was limited somewhat by his lack of contrast. LABORATORY DATA: CBC revealed a white blood cell count of 13,000 with a hemoglobin of 13.9, hematocrit of 39.8, platelet count of 267,000. Chemistry group showed creatinine is 0.64. Liver function tests were normal. Pathology from his craniotomy is currently pending. ASSESSMENT: Mr. An is a 63-year-old gentleman, who likely has a new diagnosis of lung cancer. This is likely going to be a non-small cell cancer and is currently a stage IV. This appears to be a stage IV, T1, N0, M1 lesion. I do not think this is related to his bladder cancer. We need to await final pathology to confirm this. PLAN: I had a long discussion today with Mr. An regarding his diagnosis, prognosis, prognostic factors, and treatment options. We discussed the likely clinical scenario of what is occurring, that he has lung cancer that has metastasized to the brain. I did explain his staging studies to date, which do not appear to show other evidence of metastatic disease. I do think it would be good as an outpatient once he has recovered from his craniotomy to obtain a PET scan, and this will be arranged after discharge. Again, we need to wait for the final pathology before we can make treatment recommendations completely. If this is a metastasis as expected, then his risk of recurrence at the craniotomy site is at least 50%. He also has a risk of recurring in other areas of the brain. Likely, I am going to recommend that he be treated with stereotactic radiosurgery to the resection cavity over 5 days of treatment. The logistics of radiation as well as the benefits and risk of treatment were discussed. The simulation and daily treatment procedure were discussed. Side effects would include, but not be limited to skin reaction, fatigue, lower blood counts, hair loss, headache, nausea, vomiting, and small risk of damage to his normal brain, which could affect his vision or cause other difficulties. Once the pathology is confirmed, then we can confirm that recommendation also. If this is lung cancer, then how we would direct treatment to the primary site will depend on what his staging PET scan which show. If it does not show other evidence of disease other than the right upper lobe lung mass and we could potentially treat the right upper lobe lung mass with either surgery or even stereotactic body radiotherapy. If he only has a solitary area of metastasis, then it can be up to a 25% chance of having long-term survival from this. I did explain to him that he would be at high risk for recurrence, but on occasions, some patients are long-term survivors, if it does not have other metastasis. We will make arrangements to see him again as an outpatient once he has recovered from this surgery. This will likely be in a couple of weeks. We can then make a final treatment recommendations at that time. Thank you for asking me to see this pleasant gentleman. Job ID: [id number]
[2018-10-09] MEDS: Dexamethasone 4 mg/ml Vial SLOW IVP SCH ×2 (06:13→12:37)
[2018-10-09] MEDS: Sodium Chloride 0.9% 1,000 ML IV SCH (06:16)
[2018-10-09] MEDS: Baclofen 10 MG TAB PO SCH ×2 (08:53→19:54)
[2018-10-09] MEDS: Aspirin 81 mg Enteric Coated Tablet PO SCH (08:53)
[2018-10-09] MEDS: Acetaminophen/Codeine 30-300mg Tablet PO PRN ×2 (09:00→18:32)
[2018-10-09] MEDS: Acetaminophen 325 MG TAB PO PRN ×3 (09:00→23:23)
--- NOTE | 2018-10-09 12:02 | PRG ---
DATE OF SERVICE: 10/09/2018 SERVICE: Pulmonary Medicine. INTERVAL HISTORY: The patient is doing outstanding from respiratory standpoint. He has a good appetite. No fevers, chills, cough, or sputum production has recurred. His strength in the right upper and lower extremity are good. His vision is good. He has a chronic left-sided hemiparesis/paralysis associated with a remote stroke. Otherwise, there has been no interval change to his condition. PHYSICAL EXAMINATION: VITAL SIGNS: Afebrile, pulse 93, blood pressure 108/65, respirations 17, and saturation 93% on room air. GENERAL: The patient is awake and alert, in no apparent distress. LUNGS: Very good air entry. There is no prolonged expiratory phase or wheezing present. HEART: Normal rate. Regular. ABDOMEN: Soft, nontender, and nondistended. Bowel sounds are positive. MUSCULOSKELETAL: No cyanosis or clubbing. There is no pitting in the bilateral lower extremities. NEUROLOGIC: He has a dense left-sided hemiplegia, but outside of that, nonfocal. ASSESSMENT: 1. Pulmonary nodule. 2. Occipital brain mass, status post craniotomy for resection, postop day #2. DISCUSSION AND PLAN: I will continue to follow along, intermittently until we have the results of the pathology. I will follow him intermittently through time to make certain there is nothing additional that needs to be done about this pulmonary nodule. From my perspective, he is stable for transition to the floor. We will arrange for this to occur today. Job ID: [id number]
--- NOTE | 2018-10-09 12:19 | PRG ---
DATE OF SERVICE: 10/09/2018 Mr. An is doing well this morning. He has minimal headache, but otherwise seems to be doing quite well. We are waiting on the placement for him. He is still in the ICU, but from our standpoint, he can go to the floor at any time. Job ID: [id number]
[2018-10-09] MEDS: Dexamethasone 4 MG TAB PO SCH ×3 (12:37→23:23)
--- NOTE | 2018-10-09 15:44 | PDOC.HOSPP ---
- Subjective Encounter Date: 10/09/18 Encounter Time: 15:42 Subjective: Doing well today. Good spirits. Was able to stand with PT and that felt great. Head pain coming down. About a 4 now. - Objective Vital Signs & Weight: Vital Signs (12 hours) Temp Pulse Ox 10/09/18 12:00 98.1 F 10/09/18 10:00 93 L 10/09/18 08:00 98.3 F 93 L 10/09/18 04:00 98.3 F Weight Weight 194 lb 15.982 oz Most Recent Monitor Data Heart Rate from ECG 71 NIBP 94/56 NIBP BP-Mean 68 Respiration from ECG 25 SpO2 92 I&O: 10/08/18 10/09/18 10/10/18 06:59 06:59 06:59 Intake Total 1258 2360 580 Output Total 560 3210 770 Balance 698 -850 -190 Result Diagrams: 10/06/18 04:51 10/06/18 04:51 ROS - Medication Medications: Active Medications Generic Name Dose Route Start Last Admin Trade Name Freq PRN Reason Stop Dose Admin Acetaminophen 650 mg 10/05/18 04:19 10/09/18 09:00 Tylenol PO 650 mg Q4H PRN Administration Headache/Fever/Mild Pain (1-3) Acetaminophen/Codeine Phosphate 1 tab 10/07/18 16:31 10/09/18 09:00 Tylenol #3 PO 1 tab Q4H PRN Administration Moderate Pain (4-6) Aspirin 81 mg 10/08/18 09:00 10/09/18 08:53 Ecotrin PO 81 mg DAILY SHUBHAM Administration Atorvastatin Calcium 80 mg 10/07/18 21:00 10/08/18 20:15 Lipitor PO 80 mg HS SHUBHAM Administration Baclofen 10 mg 10/07/18 21:00 10/09/18 08:53 Lioresal PO 10 mg BID SHUBHAM Administration Dexamethasone 4 mg 10/09/18 12:00 10/09/18 12:37 Decadron PO 4 mg Q6HR SHUBHAM Administration Ondansetron HCl 4 mg 10/05/18 04:19 10/08/18 01:43 Zofran IVP 4 mg Q6H PRN Administration Nausea/Vomiting Pantoprazole Sodium 40 mg 10/05/18 09:00 10/09/18 08:53 Protonix PO 40 mg DAILY SHUBHAM Administration Phenytoin Sodium 200 mg 10/06/18 09:00 10/09/18 08:53 Dilantin Er PO 200 mg QAM SHUBHAM Administration Phenytoin Sodium 300 mg 10/05/18 21:00 10/08/18 20:15 Dilantin Er PO 300 mg QPM SHUBHAM Administration - Exam NAD, awake alert ENT - other findings: Posterior scalp incision looks good. Heart: RRR, no murmur, no gallops Respiratory: CTAB, no wheezes, no rales, no ronchi, normal chest expansion, no tachypnea, normal percussion Gastrointestinal: soft, non-tender, non-distended, normal bowel sounds, no palpable masses, no hepatomegaly, no splenomegaly, no bruit Skin: normal turgor Neurological - other findings: Left sided weakness Psychiatric: normal affect, normal behavior, A&O x 3 Hosp A/P (1) Brain mass Code(s): G93.89 - OTHER SPECIFIED DISORDERS OF BRAIN Status: Acute (2) Lung mass Code(s): R91.8 - OTHER NONSPECIFIC ABNORMAL FINDING OF LUNG FIELD Status: Acute (3) History of DVT (deep vein thrombosis) Code(s): Z86.718 - PERSONAL HISTORY OF OTHER VENOUS THROMBOSIS AND EMBOLISM Status: Acute (4) Hx of bladder cancer Code(s): Z85.51 - PERSONAL HISTORY OF MALIGNANT NEOPLASM OF BLADDER Status: Acute (5) Hx of seizure disorder Code(s): Z86.69 - PERSONAL HISTORY OF DIS OF THE NERVOUS SYS AND SENSE ORGANS Status: Acute - Plan Post-op resection of the brain mass. Will await path. Rehab recommended by [facility]. Continue Tamika Wade. SHAMA Aleman. Move to medical floor.
[2018-10-09] MEDS: Atorvastatin Calcium 40 MG TAB PO SCH (19:54)
[2018-10-10] MEDS: Acetaminophen 325 MG TAB PO PRN (06:03)
[2018-10-10] MEDS: Dexamethasone 4 MG TAB PO SCH ×4 (06:03→23:42)
[2018-10-10] MEDS: Aspirin 81 mg Enteric Coated Tablet PO SCH (08:29)
[2018-10-10] MEDS: Baclofen 10 MG TAB PO SCH ×2 (08:29→21:01)
--- NOTE | 2018-10-10 09:51 | PRG ---
DATE OF SERVICE: 10/10/2018 Mr. An is status post metastatic lesion resection. He is sitting up in the bed, awake, alert, and quite jovial. He reports no pain. He is working with physical therapy yesterday and is eager to do so again today. We await the final disposition towards inpatient rehab. Once that has been finalized, he can transfer. Job ID: [id number]
[2018-10-10] MEDS ORDERED: Propofol 1,000 MG/100 ML VIAL IV PRN (10:15)
[2018-10-10] MEDS: Acetaminophen/Codeine 30-300mg Tablet PO PRN ×2 (13:25→23:46)
--- NOTE | 2018-10-10 13:55 | PDOC.HOSPP ---
- Subjective Subjective: Feels well today. is at the bedside. He has 4-5/10 pain in the head. Otherwise, ok. He ate some [employer] breakfast. - Objective Vital Signs & Weight: Vital Signs (12 hours) Temp Pulse Resp BP Pulse Ox 10/10/18 12:24 97.5 F L 60 18 96/59 L 94 L 10/10/18 12:00 94 L 10/10/18 08:00 97 10/10/18 07:33 97.7 F 60 16 104/67 97 10/10/18 04:21 98.7 F 60 16 100/60 93 L Weight Weight 194 lb 15.982 oz Most Recent Monitor Data Heart Rate from ECG 71 NIBP 106/67 NIBP BP-Mean 80 Respiration from ECG 25 SpO2 93 I&O: 10/09/18 10/10/18 10/11/18 06:59 06:59 06:59 Intake Total 2360 1880 Output Total 3210 1989 Balance -850 -110 Result Diagrams: 10/06/18 04:51 10/06/18 04:51 ROS - Medication Medications: Active Medications Generic Name Dose Route Start Last Admin Trade Name Freq PRN Reason Stop Dose Admin Acetaminophen 650 mg 10/05/18 04:19 10/10/18 06:03 Tylenol PO 650 mg Q4H PRN Administration Headache/Fever/Mild Pain (1-3) Acetaminophen/Codeine Phosphate 1 tab 10/07/18 16:31 10/10/18 13:25 Tylenol #3 PO 1 tab Q4H PRN Administration Moderate Pain (4-6) Aspirin 81 mg 10/08/18 09:00 10/10/18 08:29 Ecotrin PO 81 mg DAILY SHUBHAM Administration Atorvastatin Calcium 80 mg 10/07/18 21:00 10/09/18 19:54 Lipitor PO 80 mg HS SHUBHAM Administration Baclofen 10 mg 10/07/18 21:00 10/10/18 08:29 Lioresal PO 10 mg BID SHUBHAM Administration Dexamethasone 4 mg 10/09/18 12:00 10/10/18 11:54 Decadron PO 4 mg Q6HR SHUBHAM Administration Ondansetron HCl 4 mg 10/05/18 04:19 10/08/18 01:43 Zofran IVP 4 mg Q6H PRN Administration Nausea/Vomiting Pantoprazole Sodium 40 mg 10/05/18 09:00 10/10/18 08:29 Protonix PO 40 mg DAILY SHUBHAM Administration Phenytoin Sodium 200 mg 10/06/18 09:00 10/10/18 08:30 Dilantin Er PO 200 mg QAM SHUBHAM Administration Phenytoin Sodium 300 mg 10/05/18 21:00 10/09/18 19:54 Dilantin Er PO 300 mg QPM SHUBHAM Administration - Exam NAD, awake alert ENT - other findings: Posterior scalpl incisional scar looks good. Heart: RRR, no murmur, no gallops, no rubs, normal peripheral pulses Respiratory: CTAB, no wheezes, no rales, no ronchi, normal chest expansion, no tachypnea, normal percussion Gastrointestinal: soft, non-tender, non-distended, normal bowel sounds, no palpable masses, no hepatomegaly, no splenomegaly, no bruit Extremities: no cyanosis, no clubbing, no edema Skin: normal turgor Neurological - other findings: Left weakness/hemiplegia. Hosp A/P (1) Brain mass Code(s): G93.89 - OTHER SPECIFIED DISORDERS OF BRAIN Status: Acute (2) Lung mass Code(s): R91.8 - OTHER NONSPECIFIC ABNORMAL FINDING OF LUNG FIELD Status: Acute (3) History of DVT (deep vein thrombosis) Code(s): Z86.718 - PERSONAL HISTORY OF OTHER VENOUS THROMBOSIS AND EMBOLISM Status: Acute (4) Hx of bladder cancer Code(s): Z85.51 - PERSONAL HISTORY OF MALIGNANT NEOPLASM OF BLADDER Status: Acute (5) Hx of seizure disorder Code(s): Z86.69 - PERSONAL HISTORY OF DIS OF THE NERVOUS SYS AND SENSE ORGANS Status: Acute - Plan Post-op resection of the brain mass. Will await path. Rehab recommended by [facility]. Consult for CM and rehab screen entered. Continue Dilantin, Decadron. Medically stable otherwise.
[2018-10-10] MEDS: Atorvastatin Calcium 40 MG TAB PO SCH (21:02)
[2018-10-11] MEDS: Dexamethasone 4 MG TAB PO SCH ×3 (05:59→18:22)
[2018-10-11] MEDS: Acetaminophen/Codeine 30-300mg Tablet PO PRN (08:50)
[2018-10-11] MEDS: Baclofen 10 MG TAB PO SCH (08:51)
[2018-10-11] MEDS: Aspirin 81 mg Enteric Coated Tablet PO SCH (08:52)
--- NOTE | 2018-10-11 08:59 | PRG ---
DATE OF SERVICE: 10/11/2018 Mr. An is 48 hours out from craniotomy for resection of the metastatic lesion in the left occipital lobe. Neurologically stable, perhaps improved from surgery and he is ready for placement today. Arrangements can be made for inpatient rehabilitation and he could be discharged. He is going to need follow up in Radiation Oncology and in our clinic. We will arrange our appointment. Job ID: [id number] MTDD
--- NOTE | 2018-10-11 13:18 | PRG ---
DATE OF SERVICE: 10/11/2018 SERVICE: Pulmonary Medicine. INTERVAL HISTORY: The patient is breathing very comfortably. He has no complaints of chest pain, nausea, vomiting, shortness of breath, fevers, or chills. Otherwise, there has been no interval change to his condition. We are awaiting the results of the pathology on the brain. Pulmonary is going to be following intermittently until this results. PHYSICAL EXAMINATION: VITAL SIGNS: Afebrile, pulse 61, blood pressure 121/78, respirations 18, and saturation 96% on room air. GENERAL: The patient is awake and alert, in no apparent distress. LUNGS: Very good air entry without any prolonged expiratory phase or wheezing present. HEART: Normal rate and regular. ABDOMEN: Soft, nontender, and nondistended. Bowel sounds are positive. MUSCULOSKELETAL: No cyanosis or clubbing. There is no pitting in the bilateral lower extremities. NEUROLOGIC: Dense hemiplegia on the left upper and lower extremities present. ASSESSMENT: 1. Pulmonary nodule. 2. Occipital brain mass, status post craniotomy for resection, postop day #4. DISCUSSION AND PLAN: Pulmonary will continue to follow, intermittently. We are awaiting the results of the biopsy. If the patient remains inhouse, Dr. Esquivel will resume care in the morning. Job ID: [id number]
[2018-10-11 14:56] VITALS: BP 107/68; TEMP 97.4
[2018-10-11 15:27] LABS: Actual Bicarbonate (HCO3a) 18.9 mEq/L (22-28); Analyzer IN Cardio OR; Base Excess (BEa) -6.6 mEq/L (-2.0 to +3.0); CO2 Tension 37.9 mmHg (35.0-45.0); Calcium, Ionized 1.09 mmol/L (1.12-1.30); Carboxyhemoglobin (COHb) 1.1 gm% (0.0-3.0); Hemoglobin (Hb) 13.8 g/dL (14.0-18.0); O2 Tension (PaO2) 304.2 mmHg (> 80.0); Potassium - ABG Lab 3.78 mmol/L (3.70-5.30); pH, Arterial 7.32 (7.35-7.45)
[2018-10-11 15:31] LABS: Puncture Site ALINE
--- NOTE | 2018-10-12 13:39 | DIS ---
DATE OF ADMISSION: 10/04/2018 DATE OF DISCHARGE: 10/11/2018 DISCHARGE DIAGNOSES: 1. Brain mass. 2. Lung mass. 3. History of bladder cancer. 4. History of deep vein thrombosis. 5. History of seizure disorder. 6. History of reflux. 7. History of hyperlipidemia. 8. History of BPH. HISTORY OF PRESENT ILLNESS: The patient is a 63-year-old male smoker with a history of prior CVA, on anticoagulation. He also had history of seizure disorder and bladder cancer. The patient had chronic left-sided weakness due to his prior stroke and the patient presented to the emergency department complaining of visual disturbance. At which time, a CT scan of his head revealed a left occipital lobe mass with vasogenic edema within the white matter and the prior infarct. He also had a CT of the chest, abdomen, and pelvis on arrival, which showed a 1.8 cm right upper lobe lung mass suspicious for neoplasm. HOSPITAL COURSE: The patient was admitted to the hospital and seen in consultation by Neurosurgery. The patient was placed on Decadron and was subsequently seen by Oncology as well. Clearly, there was concern for the possibility of metastatic lesion. The decision was made to remove the tumor. Dr. Baldwin removed the tumor on 10/07/2018. The patient was subsequently seen in consultation by Dr. Faustin and currently, the treatment plan was pending on the results of the excisional biopsy. The patient did well postoperatively, was watched initially in the ICU and moved out to the floor, was able to increase his activity and continued to do well. Ultimately, it was felt he would benefit from some inpatient rehab, they were consulted and the patient was accepted there. PHYSICAL EXAMINATION: VITAL SIGNS: On the day of discharge, temperature is 97.4, pulse 58, respirations 16, O2 saturation 95% on room air, BP 107/68. GENERAL: He was awake and alert, pleasant, and cooperative. His posterior incisional scar looked good, clean, and healthy. HEART: Regular rate and rhythm. LUNGS: Clear bilaterally. ABDOMEN: Soft, nontender, and nondistended. EXTREMITIES: No cyanosis, clubbing, or edema. NEUROLOGICAL: The patient had some persistent left-sided weakness. DISPOSITION: The patient is discharged to the inpatient rehab facility in stable condition. He should be on a heart healthy diet. ACTIVITY: As tolerated. He will have PT, OT, and Speech Therapy. MEDICATIONS: 1. DuoNeb. 2. Decadron. 3. Tylenol. 4. Tylenol No.3. 5. Protonix. 6. Zofran. He will continue Dilantin, aspirin, atorvastatin, baclofen and for now, holding off on his warfarin therapy. FOLLOWUP: He is to follow up with Dr. Baldwin in 2 weeks and he will follow up at the [facility] and Dr. [facility]ustin [facility] once his pathology is known and he is released from the rehab facility. He can always return to this facility should he have any problems prior to that time. TIME SPENT: Total time spent in discharge activities including greater than 50% of the time in [id number] contact with the patient was 33 minutes. Job ID: [id number]
== END 2018-10-11 19:42 | DRG 25 ==
LOC: ERS 20:24 → ERHOLD 21:47 → T4-A 10-05 15:14 → SURG A 10-07 15:21 → CCU 10-07 19:47 → SURG B 10-09 19:07
PROVIDERS: ADMIT Internal Medicine; ATTEND Internal Medicine
PROC: 00B70ZZ Excision of Cerebral Hemisphere, Open Approach (ICD-10-PCS; principal; 2018-10-07)
DX: C79.31 Secondary malignant neoplasm of brain (principal); G93.6 Cerebral edema; I69.354 Hemiplegia and hemiparesis following cerebral infarction affecting left non-dominant side; R91.8 Other nonspecific abnormal finding of lung field; K21.9 Gastro-esophageal reflux disease without esophagitis; G40.909 Epilepsy, unspecified, not intractable, without status epilepticus; E78.5 Hyperlipidemia, unspecified; C67.9 Malignant neoplasm of bladder, unspecified; N40.0 Benign prostatic hyperplasia without lower urinary tract symptoms; F17.210 Nicotine dependence, cigarettes, uncomplicated; E78.00 Pure hypercholesterolemia, unspecified; Z79.01 Long term (current) use of anticoagulants; Z79.899 Other long term (current) drug therapy
CPT/HCPCS: 36415; 70553; 71250; 71260; 74177; 80048; 80053; 80185; 82805; 83735; 85025; 85610; 85730; 88307; 88331; 88334; 88341; 88342; 96361; 96374; C1713; J0131; J0360; J0690; J1100; J2001; J2270; J2405; J2704; J3010; J3430; J3490; J8540

== ENCOUNTER 2019-01-14 08:07 | Outpatient (CLI) | payer MEDICARE, OTHER ==
--- NOTE | 2019-01-14 10:38 | PET ---
PET SCAN WITH CT ATTENUATION CORRECTION: HISTORY: Lung cancer. Non-small cell lung cancer. COMPARISON: None. TECHNIQUE: PET scan with CT attenuation correction was performed from the base of brain to the proximal thighs f ollowing the intravenous administration of 11.09 mCi of [id number] FINDINGS: Head and neck: Lack of glucose uptake involving the right cerebrum compatible with a remote right MCA distribution i nfarct. Increased soft tissue density with subtle uptake of FDG in the nasopharynx with a maximum SUV of 2.9. Direct visualization is recommended. Posterior midline neck as FDG localization with a maximum SUV of 4.8 at the C6 level. Chest: FDG localization in the right upper lobe with a maximum SUV of 4.3. Hypermetabolic right mediastinal lymph node with a maximum SUV of 4.2. Hypermetabolic right hilar lymph node with a maximum SUV of 6.1. Abdomen and pelvis: No abnormal FDG localization. Osseous structures: No abnormal FDG localization. IMPRESSION: 1. Increased FDG involving the posterior left paraspinal soft tissues at the C6 level. 2. Increased FDG involving the nasopharynx with associated increased soft tissue prominence on the CT used for attenuation correction. Direct visualization is recommended. 3. Hypermetabolic right upper lobe nodule along with right hilar and mediastinal hypermetabolic lymph nodes. Transcribed Date/Time: 01/14/2019 10:58 AM
== END 2019-01-14 08:08 | disposition home or self-care (01) ==
LOC: PET 08:07
PROVIDERS: ATTEND Radiology Radiation Oncology
DX: C34.90 Malignant neoplasm of unspecified part of unspecified bronchus or lung (principal); R91.1 Solitary pulmonary nodule
CPT/HCPCS: 78815; A9552

== ENCOUNTER 2019-02-07 09:24 | Outpatient (CLI) | payer MEDICARE, OTHER ==
[2019-02-07 10:55] LABS: Estimated GFR-MDRD - POC Greater than 90
--- NOTE | 2019-02-07 11:48 | MRI ---
MRI BRAIN WITH AND WITHOUT CONTRAST: DATE: 02/07/2019 HISTORY: A 64-year-old male with metastatic non-small cell lung cancer. Follow up brain metastasis. C79.31, lung cancer. C34.11, brain metastasis. COMPARISON: 12/10/2018 TECHNIQUE: Multiple sequences obtained in axial, sagittal, and coronal planes; pre and post IV injection of gado linium-based contrast agent: MultiHance 15 mL. FINDINGS: Deep to the left parieto-occipital craniotomy there was previously residual 2 x 2 x 2 cm enhancing me tastatic intra-axial mass. It has increased in size to current dimensions of approximately 2.9 x 3.2 x 2.4 cm. It has heterogeneous mixed enhancement, irregular lobular margins, and is surrounded by vas ogenic edema. The edema has become much larger in volume, now causing local mass effect, completely e ffacing sulci of left parietal lobe and left occipital lobe, and causing new finding of total effacem ent of the occipital horn and trigone of the left lateral ventricle. There is a greater degree of hem orrhage within this neoplastic tumor mass now. There are no additional enhancing intra-axial masses. Again noted is the large region of right frontotemporoparietal encephalomalacia and gliosis with asso ciated wallerian degeneration of the right cerebral peduncle and right side of the [place]. Chronic abse nce of the flow void of the right carotid siphon is again noted. Left to right midline shift of up to 5 mm of the septum pellucidum is mostly on an ex vacuo basis due to the right sided encephalomalacia and gliosis. Left mastoid effusion. Severe partial opacification of the nasal cavity, the right maxillary sinus an d the bilateral ethmoid air cells. IMPRESSION: 1. Interval growth of the left parieto-occipital intra-axial malignant neoplastic tumor mass, presuma sanket representing solitary metastasis, causing a greater degree of vasogenic edema and local mass effe ct since the previous MRI. 2. Large old infarction in the right middle cerebral artery territory with associated right brainstem wallerian degeneration, associated with chronically occluded right internal carotid artery. CARMEN Castro POS: TPC
== END 2019-02-07 09:25 | disposition home or self-care (01) ==
LOC: MRI 09:24
PROVIDERS: ATTEND Radiology Radiation Oncology
DX: C79.31 Secondary malignant neoplasm of brain (principal); C34.11 Malignant neoplasm of upper lobe, right bronchus or lung; I65.21 Occlusion and stenosis of right carotid artery; Z86.73 Personal history of transient ischemic attack (TIA), and cerebral infarction without residual deficits
CPT/HCPCS: 70553; 82565

== ENCOUNTER 2019-03-02 13:07 | Outpatient (CLI) | payer MEDICARE, OTHER ==
--- NOTE | 2019-03-02 14:53 | MRI ---
MRI BRAIN WITH AND WITHOUT CONTRAST: HISTORY: Lung cancer. Follow up brain surgery. History of brain metastases. COMPARISON: 02/07/2019 FINDINGS: Gradient echo sequence: Stable hemosiderin deposition. Calvarium: Appropriate T1 marrow signal intensity. Midline brain parenchyma: Unremarkable. Cerebrum: Stable encephalomalacia and gliosis involving the right cerebrum, compatible with a remote MCA distribution infarction. Stable FLAIR and T2 hyperintensities involving the cerebrum. There is stable vasogenic edema of the left occipital temporoparietal region. Post contrast images demonstrate intraparenchymal enhancement along the posterior left cerebrum, measuring 3.2 x 2.4 x 2.9 cm. Previously, this area of enhancement measured 2.4 x 2.8 x 2.9 cm. Post surgical change in the overlyi ng calvarium is noted. Ventricles: Stable mass effect and diminutive left lateral ventricle and stable ex vacuo dilatation o f the right lateral ventricle. Sinuses and mastoid air cells: Mucosal thickening of the ethmoid air cells. Significant opacification of the right maxillary sinus. When compared to the prior exam, there is slight improvement in the overall aeration of the paranasal sinuses. Diffusion: Central arterial flow is maintained. Absent restricted diffusion. Post contrast images: Enhancing lesion in the left cerebrum as described above. IMPRESSION: 1. Interval slight increase metastatic deposit in the left occipital lobe. Solitary metastatic deposi t is identified. 2. Stable encephalomalacia due to remote right MCA distribution infarction. Transcribed Date/Time: 03/02/2019 3:00 PM
== END 2019-03-02 13:08 | disposition home or self-care (01) ==
LOC: MRI 13:07
PROVIDERS: ATTEND Radiology Radiation Oncology
DX: C34.90 Malignant neoplasm of unspecified part of unspecified bronchus or lung (principal); C79.31 Secondary malignant neoplasm of brain; G93.89 Other specified disorders of brain; Z86.73 Personal history of transient ischemic attack (TIA), and cerebral infarction without residual deficits
CPT/HCPCS: 70553

== ENCOUNTER 2019-03-13 20:43 | Observation (INO) | payer MEDICARE, OTHER ==
[2019-03-13 21:46] LABS: #Eosinphils 0.2 thou/uL (0.0-0.7); #Lymphocytes 0.8 thou/uL (1.20-3.40); #Monocytes 0.7 thou/uL (0.11-0.59); #Neutrophils 6.7 thou/uL (1.40-6.50); %Basophils 0.4 % (0.0-1.0); %Eosinophils 2.7 % (0.0-10.0); %Lymphocytes 9.4 % (21.0-51.0); %Neutrophils 79.5 % (42.0-75.0); Hemoglobin 14.9 g/dL (14.0-18.0); Mean Corpuscular HGB CONC 31.3 g/dL (32.0-36.0); Mean Corpuscular Hemoglobin 30.8 pg (27.0-31.0); Mean Corpuscular Volume 98.4 fL (78.0-98.0); Mean Platelet Volume 7.3 fL (7.4-10.4); Platelet Count 300 thou/uL (130-400); RBC Distribution Width 12.1 % (11.5-14.5); Red Blood Cell (RBC) Count 4.84 mill/uL (4.70-6.10); White Blood Cell (WBC) Count 8.4 thou/uL (4.8-10.8)
--- NOTE | 2019-03-13 21:53 | RAD ---
RADIOGRAPH CHEST 1 VIEW: DATE: 03/13/2019 HISTORY: 64-year-old male with altered mental status. Concern for aspiration. FINDINGS: There are no airspace densities, pulmonary edema, pneumothorax, or cardiomegaly. The lateral costophr enic angles are sharp. IMPRESSION: No acute cardiopulmonary findings.
[2019-03-13 22:01] LABS: ALT (SGPT) 16 U/L (8-55); AST (SGOT) 17 U/L (5-34); Albumin 4.2 g/dL (3.4-4.8); Alkaline Phosphatase 127 U/L (40-110); Anion Gap 13 mmol/L (10-20); BUN (Urea Nitrogen) 8 mg/dL (8.4-25.7); Bilirubin, Total 0.4 mg/dL (0.2-1.2); Calc. Creatinine Clearance 0 mL/min (70-130); Calcium 9.5 mg/dL (7.8-10.44); Carbon Dioxide 26 mmol/L (23-31); Chloride 104 mmol/L (98-107); Estimated GFR-MDRD Greater than 90; Globulin 3.1 g/dL (2.4-3.5); Glucose 93 mg/dL (80-115); Potassium 4.2 mmol/L (3.5-5.1); Protein, Total 7.3 g/dL (5.8-8.1); Sodium 139 mmol/L (136-145)
--- NOTE | 2019-03-13 22:09 | CT ---
CT BRAIN NONCONTRAST: DATE: 03/13/2019 HISTORY: 64-year-old male with malignant brain tumor, presents with altered mental status and generalized weak ness. COMPARISON: MRI of 03/02/2019 FINDINGS: Large confluent right frontotemporal parietal encephalomalacia and gliosis, involving the entire righ t basal ganglia and caudate. Associated ex vacuo mild dilation of right lateral ventricle and ex vacuo left to right midline shift. No obstructive hydrocephalus. Approximately 3.8 cm lobulated left occipital intra-axial tumor with large region of adjacent left temporoparietal vasogenic edema. No acute intra-axial or extra-axial hemorrhage. Left occipital craniotomy flap. Multiple polypoid densit ies in nasal cavity and right maxillary sinus. Within the limitations of comparing a CT to an MRI, no significant interval change is detected. IMPRESSION: 1) no interval change. No acute findings. 2) left occipital intra-axial neoplastic tumor with surrounding large area of vasogenic edema. 3) large old infarction in right middle cerebral artery territory. 4) sinonasal polyposis.
--- NOTE | 2019-03-13 23:30 | PDOC.FPRHP ---
- History of Present Illness Chief Complaint: Acute Visual Change History of Present Illness: 64 yo M with remote history bladder cancer with RUL Lung met and L occipital brain met, Hx of DVT in the past, CVA, Hx of Seizures, GERD, and HLD who presents with acute vision changes. Pt reports having vision changes that started yesterday. Stated it was like a basketball sitting in front of his eyes. States that he couldn't see stuff far away and he has no peripheral vision. He said today that it started to get worse "like TV screen" that started around 3 pm and he couldn't see anything. Pt denies any other symptoms at this time besides rhinorrhea and ongoing weakness in his hands. ED Course: In the ED, a CXR, CBC, and CMP were normal. CT of Brain showed L occipital Intra -axial neoplastic tumor with surrounding vasogenic edema, large old infarct in R MCA, and sinonasal polyposis. - Allergies/Adverse Reactions Allergies Allergy/AdvReac Type Severity Reaction Status Date / Time No Known Allergies Allergy Verified 03/14/19 01:06 - Home Medications Medication Instructions Recorded Confirmed Type Atorvastatin Calcium 80 mg PO HS 08/31/18 03/14/19 History Baclofen 10 mg PO BID 08/31/18 03/14/19 History Phenytoin Sodium Extended 200 mg PO QAM 08/31/18 03/14/19 History [Dilantin] Warfarin Sodium [Coumadin] 5 mg PO DAILY 08/31/18 03/14/19 History Phenytoin Sodium Extended 300 mg PO QPM 10/05/18 03/14/19 History Ondansetron [Zofran ODT] 4 mg PO Q6H PRN tab 10/11/18 03/14/19 Rx Pantoprazole [Protonix] 40 mg PO DAILY tab 10/11/18 03/14/19 Rx Dexamethasone [Decadron] 4 mg PO BID 03/14/19 03/14/19 History - History PMHx: bladder cancer with RUL Lung met and L occipital brain met, Hx of DVT in the past, HLD, Hx of Seizures, GERD, and CVA in 2008 that caused permanent L sided weakness PSHx: Brain surgery 10/11 for occipital mets. , R. ACL Knee Surgery FHx: Noncontributory Social: No alcohol or recreational drug use. Tobacco- smokes 1 PPD for 50 years - Review of Systems General: denies: fever/chills, weight/appetite/sleep changes, night sweats, fatigue Eyes: reports: vision changes. denies: eye pain ENT: denies: nasal congestion, rhinorrhea Respiratory: denies: cough, congestion, shortness of breath Cardiovascular: denies: chest pain, palpitation, edema, paroxysmal nocturnal dyspnea Gastrointestinal: denies: nausea, vomiting, diarrhea, constipation, abdominal pain, GI bleeding Genitourinary: denies: dysuria Skin: reports: lesions. denies: rashes Musculoskeletal: denies: pain, tenderness, stiffness, swelling, arthritis/ arthralgias Neurological: reports: weakness (reports weakness in hands which has been present for 10 years.). denies: numbness, syncope, seizure - Vital signs BP: 110/63 HR: 75 RR: 16 Tmax: 98 Pox: 94% on RA Wt: 88 kg - Physical Exam Constitutional: NAD HEENT: normocephalic and atraumatic, PERRLA, EOMI, conjunctiva clear, no scleral icterus, MMM, oropharynx clear Neck: supple, no LAD Heart: RRR, normal S1/S2, no murmurs/rubs/gallops, pulses present, no edema Lungs: CTAB, no respiratory distress, good air movement, no rales/rhonchi, no wheezing, no retractions Abdomen: soft, non-tender, bowel sounds present Musculoskeletal: normal structure, other (Flexed posturing of L hand with extension of L fingers) Neurological: normal sensation -Neurological: CN III-XII intact with no peripheral vision and limited central vision and inability to track except to the right, Normal sensation, Strength: RLE: 4/5, RUE: 4/5, LLE: 2/5, LUE: 2/5, Difficulty evaluating cerbellar signs due to weakness and vision loss -Skin: Grade 1 Wound on Left dorsal foot. Heme/Lymphatic: no unusual bruising or bleeding, no purpura, no petechia Psychiatric: normal mood and affect FMR H&P: Results - Labs Result Diagrams: 03/13/19 21:26 03/13/19 20:26 Lab results: WBC 8.4 thou/uL (4.8-10.8) 03/13/19 21:26 Hgb 14.9 g/dL (14.0-18.0) 03/13/19 21:26 Hct 47.6 % (42.0-52.0) 03/13/19 21:26 MCV 98.4 fL (78.0-98.0) H 03/13/19 21:26 Plt Count 300 thou/uL (130-400) 03/13/19 21:26 Neutrophils % 79.5 % (42.0-75.0) H 03/13/19 21:26 Sodium 139 mmol/L (136-145) 03/13/19 20:26 Potassium 4.2 mmol/L (3.5-5.1) 03/13/19 20:26 Chloride 104 mmol/L (98-107) 03/13/19 20:26 Carbon Dioxide 26 mmol/L (23-31) 03/13/19 20:26 BUN 8 mg/dL (8.4-25.7) L 03/13/19 20:26 Creatinine 0.68 mg/dL (0.7-1.3) L 03/13/19 20:26 Glucose 93 mg/dL (80-115) 03/13/19 20:26 Calcium 9.5 mg/dL (7.8-10.44) 03/13/19 20:26 Total Bilirubin 0.4 mg/dL (0.2-1.2) 03/13/19 20:26 AST 17 U/L (5-34) 03/13/19 20:26 ALT 16 U/L (8-55) 03/13/19 20:26 Alkaline Phosphatase 127 U/L (40-110) H 03/13/19 20:26 Serum Total Protein 7.3 g/dL (5.8-8.1) 03/13/19 20:26 Albumin 4.2 g/dL (3.4-4.8) 03/13/19 20:26 - Radiology Interpretation CT scan - head Status: image reviewed by me, report reviewed by me (1. No interval change. No acute findings. 2. L. occipital intra-axial neoplastic tumor w/ surrounding large area of vasogenic edema. 3. large old infaction in R. middle cerebral artery territory. 4. sinonasal polyposis.) Chest x-ray Status: image reviewed by me, report reviewed by me (No acute cardiopulm findings.) FMR H&P: A/P - Problem List (1) HLD (hyperlipidemia) Current Visit: Yes Status: Acute Code(s): E78.5 - HYPERLIPIDEMIA, UNSPECIFIED (2) Brain mass Current Visit: No Status: Acute Code(s): G93.89 - OTHER SPECIFIED DISORDERS OF BRAIN (3) History of DVT (deep vein thrombosis) Current Visit: No Status: Acute Code(s): Z86.718 - PERSONAL HISTORY OF OTHER VENOUS THROMBOSIS AND EMBOLISM (4) Hx of bladder cancer Current Visit: No Status: Acute Code(s): Z85.51 - PERSONAL HISTORY OF MALIGNANT NEOPLASM OF BLADDER (5) Hx of seizure disorder Current Visit: No Status: Acute Code(s): Z86.69 - PERSONAL HISTORY OF DIS OF THE NERVOUS SYS AND SENSE ORGANS (6) GERD (gastroesophageal reflux disease) Current Visit: Yes Status: Acute Code(s): K21.9 - GASTRO-ESOPHAGEAL REFLUX DISEASE WITHOUT ESOPHAGITIS - Plan 64 yo M with remote history bladder cancer with RUL Lung met and L occipital brain met, Hx of DVT in the past, CVA, Hx of Seizures, GERD, and HLD who presents with acute vision changes. 1. Brain Metastasis from Bladder Cancer Acute Vision Change * Unable to Track up, down, or to the left * Peripheral vision impaired as well as central vision * CT Brain (03/13/19): L occipital Intra-axial neoplastic tumor with surrounding vasogenic edema, large old infarct in R MCA, Sinonasal polyposis * MRI Brain (03/02/19): Interval slight increase metastatic deposit in L Occipital lobe. Solitary Metastatic deposit. Stable Encephalomalacia due to remote R MCA distribution infarction. * Dr. Jack was called by ED, appreciate recs * Increase Decadron to 4 mg QID * Consult Dr. Faustin, Rad Onc, in the morning * Consulted PT/OT * Case Management & Acute Rehab Screening ordered to determine placement due to new onset vision loss 2. Hx of DVT * Home Medication is Coumadin * Ordered INR checks * Coumadin was d/cee during admission in 10/11 * Will contact PCP to clarify medication 3. Chronic Venous Ulcer On Dorsum of L Foot * Consulted Wound Care 4. Hx of Seizures * Continue home Dilantin 5. GERD * Continue home Protonix 6. HLD * Continue home Atorvastatin 7. Hx of CVA * Continue home Baclofen Code Status: Full Diet: HHLSo Lines: Peripheral, SL DVT PPx: Coumadin GI PPx: Protonix PCP: Naye Disp: Onc Obs, LOS < 48H. Will contact Dr. Faustin in the morning for further management of brain met. FMR H&P: Upper Level - Pertinent history I was present with the resident Dr. Romel Dial, PGY1, during the HPI. I scribed the above document. I made edits above as needed. See above. - Pertinent findings Pt had some old neuro defecits in his left leg. Was not able to fully lift. Reported as old. Sensation was intact bilaterally in upper and lower extremities. CN3-12 grossly intact with pt having visual field defecit that unable to see inner right vision and left peripheral vision. Did not follow on H test towards left, up and down due to vision loss. Cardio: RRR, no murmurs or gallops Resp: CTA-B, no wheezes or crackles. - Plan Date/Time: 03/13/19 9841 I, Fantasma Rutledge, PGY-3, have evaluated this patient and agree with findings/ plan as outlined by international logistics coordinator resident. Pertinent changes/additions are listed here. See above for detailed plan. I made edits above as needed. At this time we are admitting patient for acute vision loss likely 2/2 known metastatic brain lesions in his left occipital lobe. Pt was admitted and had surgery for the same issue back in 09/2018. Dr. Jack was consulted by the ER. Recommends we contact Dr. Faustin in the AM for further recs. Pt had recent MRI on 03/02/2019 so will hold on ordering MRI. Addendum - Attending - Attending Attestation Date/Time: 03/14/19 1030 I personally evaluated the patient and discussed the management with Dr. Dial/ Maty. I agree with the History, Examination, Assessment and Plan documented above with any addition or exceptions noted below. Patient here for worsening visual chung likely related to vasogenic edema and brain met to the occipital lobe. Consult Ran Onc per Onc recs, continue Decadron for now.
[2019-03-13 23:41] LABS: Bacteria/HPF None Seen HPF (None Seen); Bilirubin Negative (Negative); Blood, Urine Negative (Negative); Clarity Clear (Clear); Glucose, Urine (Dipstick) Normal (Negative); Leukocyte 25 Leu/uL (Negative); Nitrite Negative (Negative); Protein, Urine (Dipstick) 30 mg/dL (Neg-Trace); RBC/HPF 0-3 HPF (0-3); Squamous Epithelial 0-3 HPF (0-3); Urobilinogen Normal mg/dL (Less than 2)
[2019-03-14] MEDS ORDERED: Ondansetron ODT 4 MG TAB SL PRN (00:32)
[2019-03-14] MEDS ORDERED: Ondansetron PF 4 MG/2 ML Vial IVP PRN ×2 (00:32→00:40)
[2019-03-14] MEDS ORDERED: Acetaminophen 325 MG TAB PO PRN ×2 (00:32→13:40)
[2019-03-14] MEDS ORDERED: Acetaminophen 650 MG Suppository PR PRN (00:40)
[2019-03-14] MEDS ORDERED: Senokot S 8.6-50 MG TAB PO PRN (00:40)
[2019-03-14] MEDS ORDERED: Nicotine 21 MG PATCH TD SCH (00:45)
[2019-03-14] MEDS ORDERED: Ondansetron ODT 4 MG TAB PO PRN (01:45)
[2019-03-14 05:51] LABS: INR-International Normal Ratio 1.7; Prothrombin Time 20.1 SEC (12.0-14.7)
[2019-03-14] MEDS: Baclofen 10 MG TAB PO SCH ×2 (08:00→19:43)
[2019-03-14] MEDS: Famotidine 20 MG TAB PO SCH ×2 (08:00→19:44)
[2019-03-14] MEDS: Nicotine 21 MG PATCH TD SCH (08:00)
[2019-03-14] MEDS ORDERED: Dexamethasone 4 MG TAB PO SCH ×2 (08:00)
[2019-03-14] MEDS ORDERED: FLU VACC TS2019-20(65YR UP)/PF 180 MCG/0.5 ML SYRINGE IM ONE (09:00)
[2019-03-14] MEDS ORDERED: Prevnar 13-Val Conj/PF 0.5 ML SYRINGE IM ONE (09:00)
[2019-03-14 11:21] VITALS: BMI 26.3
[2019-03-14] MEDS ORDERED: Baclofen 10 MG TAB PO SCH (13:45)
--- NOTE | 2019-03-14 13:45 | PRG ---
DATE OF SERVICE: 03/14/2019 SUBJECTIVE: Mr. 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 He was treated with surgical resection followed by radiosurgery. More recently, he has been on radiation therapy for his lung primary. He has 2 fractions remaining. However, he has been having some difficulty with his vision and has had several MRIs recently which suggested either hemorrhage or recurrent tumor in the left occipital lobe. He has seen both Dr. Baldwin and myself for this. He was admitted to the hospital yesterday because of worsening of his vision. His steroids were increased. He is not having headaches. Neurologically, he is otherwise unchanged. He has no difficulty with swallowing or shortness of breath. OBJECTIVE: VITAL SIGNS: Height is 6 feet, weight is 194 pounds. Blood pressure is 88/50, pulse is 73, respirations 16, temperature is 98.5, O2 saturation is 95% on room air. GENERAL: He is alert and oriented, in no apparent distress. HEENT: Eyes; pupils are equal, round, and reactive to light. Extraocular movements are intact. He is able to follow my light. However, he reports his vision is all blurred. ENT; oral cavity and oropharynx are normal without lesion or erythema. Gingiva is intact. NECK: Supple without cervical or supraclavicular adenopathy. No thyromegaly. Larynx midline. LUNGS: Breathing nonlabored. Clear to auscultation and percussion. CARDIOVASCULAR: Heart, regular rate and rhythm without murmur. ABDOMEN: Soft, nontender, nondistended without mass or hepatosplenomegaly. NEUROLOGIC: Fairly unchanged other than his vision. He still has a dense left hemiparesis from his previous stroke. RADIOLOGIC DATA: CT scan of the head performed on admission showed a 3.8 cm lesion in the left occipital lobe with surrounding vasogenic edema. LABORATORY DATA: CBC revealed a white blood cell count of 8400 with a hemoglobin of 14.9, hematocrit of 47.6, and platelet count of 300,000. Chemistry group showed a normal creatinine. Alkaline phosphatase is 127. Glucose is normal at 93. ASSESSMENT: Mr. An is a 64-year-old gentleman with a known stage IV poorly differentiated carcinoma of the right upper lobe of the lung. He has had treatments several months ago for a solitary brain metastasis, that was surgically resected, followed by Radiosurgery to 25 Gy in 5 fractions. We have been monitoring him on outpatient because of some visual changes with serial MRIs with concern has been either recurrent tumor in the occipital lobe or hemorrhage. PLAN: I did discuss situation with Mr. An and his . Again, they saw Dr. Baldwin about 1 week ago, who offered him a repeat craniotomy to try and determine whether he indeed has recurrent tumor. Certainly, there is a concern for recurrent tumor. At that time, Mr. An wanted to wait and have an another repeat MRI. I would recommend that Dr. Baldwin will re-evaluate the patient while he is here in the hospital to determine whether a repeat craniotomy should be performed. The patient seems more receptive to that at the present time. Should he have recurrent disease, we could potentially plan some adjuvant radiation therapy to that area. He has 2 more fractions remaining on his lung. I offered to bring him over for treatment today, but he declined. We will try to treat him tomorrow. I would perhaps increase the dexamethasone to t.i.d. We will await Dr. Baldwin's evaluation. Job ID: [id number]
[2019-03-14] MEDS: traMADol HCl 50 MG TAB PO PRN ×2 (15:07→20:27)
[2019-03-14] MEDS: Dexamethasone 4 MG TAB PO SCH (16:50)
[2019-03-14] MEDS ORDERED: Warfarin Sodium 5 MG TAB PO SCH (17:00)
[2019-03-14] MEDS: Atorvastatin Calcium 40 MG TAB PO SCH (19:43)
[2019-03-15 04:16] LABS: INR-International Normal Ratio 1.4; Prothrombin Time 16.7 SEC (12.0-14.7)
--- NOTE | 2019-03-15 05:33 | PDOC.FM ---
- Subjective Subjective: Doing well this morning, no acute events overnight, slept well, no concerns for this morning. Blurred vision is stable, no worsening and no new focal neurologic deficits. No fever/chills, SOB, CP, n/v. Tolerating PO well. - Objective MAR Reviewed: Yes Vital Signs & Weight: Vital Signs (12 hours) Temp Pulse Resp BP BP Pulse Ox 03/15/19 04:00 98.5 F 59 L 16 121/68 97 03/14/19 19:50 98.4 F 72 16 112/67 96 Weight Admit Weight 87.997 kg Weight 87.997 kg I&O: 03/13/19 03/14/19 03/15/19 06:59 06:59 06:59 Intake Total 300 560 Output Total 600 600 Balance -300 -40 Result Diagrams: 03/13/19 21:26 03/13/19 20:26 Phys Exam - Physical Examination Constitutional: NAD (resting comfortably) HEENT: moist MMs Neck: supple Respiratory: no wheezing, no rales, no rhonchi, clear to auscultation bilateral Cardiovascular: RRR, no significant murmur, no rub Gastrointestinal: soft, non-tender, no distention, positive bowel sounds Musculoskeletal: no edema, pulses present 4/5 on R UE and LE, 4/5LLL, 2/5 LUE - states chronic weakness Neurological: normal sensation Blurred vision, unable to assess cerebellar signs, does not endorse visual field deficits but difficult to assess Psychiatric: normal affect Deviation from normal: Pressure wound on L dorsal surface of foot, dressing d/c/ i Dx/Plan (1) Brain mass Code(s): G93.89 - OTHER SPECIFIED DISORDERS OF BRAIN Status: Acute (2) History of DVT (deep vein thrombosis) Code(s): Z86.718 - PERSONAL HISTORY OF OTHER VENOUS THROMBOSIS AND EMBOLISM Status: Chronic (3) Hx of bladder cancer Code(s): Z85.51 - PERSONAL HISTORY OF MALIGNANT NEOPLASM OF BLADDER Status: Chronic - Plan Plan: 64 yo M with remote history bladder cancer with RUL Lung met and L occipital brain met, Hx of DVT in the past, CVA, Hx of Seizures, GERD, and HLD who presents with acute vision changes. #Brain Metastasis from Bladder Cancer with acute vision change - sxs started prior to admission, gradual worsening, now stable with blurred vision. No other new focal deficits. - CT Brain (03/13/19): L occipital Intra-axial neoplastic tumor with surrounding vasogenic edema, large old infarct in R MCA, Sinonasal polyposis - MRI Brain (03/02/19): Interval slight increase metastatic deposit in L Occipital lobe. Solitary Metastatic deposit. Stable Encephalomalacia due to remote R MCA distribution infarction. - Dr. Jack was called by ED, appreciate recs - Dr. Faustin, Rad Onc, consulted, rec cont decadron and neurosurg consult for eval, apprec recs - Known to Dr. Baldwin, neurosurg consulted, appre recs - Consulted PT/OT - Case Management & Acute Rehab Screening ordered to determine placement due to new onset vision loss #Hx of DVT - INR 1.4, cont home coumadin for DVT - Will clarify with PCP dosing #Chronic Venous Ulcer - On Dorsum of L Foot, no acute changes, Wound Care consulted #Hx of Seizures - Continue home Dilantin #GERD - Continue home Protonix #HLD - Continue home Atorvastatin #Hx of CVA - continue home Baclofen - chronic L-sided weakness, stable, no acute changes Code Status: Full Diet: HHLSo Lines: Peripheral, SL DVT PPx: Coumadin GI PPx: Protonix PCP: Naye Disp: Admitted to Onc Obs, LOS < 48H. Pending neurosurg eval and recommendations. Addendum - Attending - Attending Attestation Date/Time: 03/15/19 1039 I personally evaluated the patient and discussed the management with Dr. Dial. I agree with the History, Examination, Assessment and Plan documented above with any addition or exceptions noted below. Patient overall stable. Going for radiation therapy today. NSGY on board, await recommendations. Steroids escalated. Change to lovenox over coumadin in anticipation of possible surgery.
--- NOTE | 2019-03-15 08:40 | CON ---
DATE OF CONSULTATION: Mr. An was admitted yesterday for visual blurriness with known left occipital lesion. This was metastatic lung cancer that was resected by Dr. Baldwin in our practice back on September with followup radiation chemotherapy. He actually had a visit with Dr. Baldwni last week regarding imaging showing potential recurrence and increasing size of the lesional appearing abnormality on new MRI scan. At that time, Surgery was discussed to resect this finding and evaluate on whether this was recurrent tumor or not, and if so whether, any additional treatments need to be augmented or added to his current regimen. At that time, the patient declined, but since then developed this visual blurriness, he was admitted. Decadron was increased and as of this morning, it appears that some of that blurriness may be improved to some degree. I held up different numbers of fingers on several occasions at different distances closest being 1 foot, for others being 6 feet. In out of 8 different attempts, he got 7 out of those correct, so perhaps Decadron is making a difference for him. I discussed with him potential treatment options. The patient is much more inclined to discuss operative management at this time given this development of visual change. My plan will be to discuss with Dr. Baldwin this desire and arrange appropriate followup either inpatient now during this hospital stay or in the clinics in the short-term. Job ID: [id number]
[2019-03-15] MEDS: Dexamethasone 4 MG TAB PO SCH ×3 (09:01→16:56)
[2019-03-15] MEDS: Baclofen 10 MG TAB PO SCH ×2 (09:01→20:09)
[2019-03-15] MEDS ORDERED: Enoxaparin Sodium 40 MG/0.4 ML SYRINGE SC SCH (09:15)
[2019-03-15] MEDS ORDERED: Enoxaparin Sodium 80 MG/0.8 ML SYRINGE SC SCH (09:15)
[2019-03-15] MEDS: Nicotine 21 MG PATCH TD SCH (10:43)
[2019-03-15] MEDS: Atorvastatin Calcium 40 MG TAB PO SCH (20:09)
[2019-03-15] MEDS: Enoxaparin Sodium 80 MG/0.8 ML SYRINGE SC SCH (20:11)
[2019-03-16 05:19] LABS: #Basophils 0.1 thou/uL (0.0-0.2); #Eosinphils 0.1 thou/uL (0.0-0.7); #Lymphocytes 0.9 thou/uL (1.20-3.40); #Monocytes 0.6 thou/uL (0.11-0.59); #Neutrophils 4.7 thou/uL (1.40-6.50); %Basophils 0.9 % (0.0-1.0); %Eosinophils 1.4 % (0.0-10.0); %Lymphocytes 13.6 % (21.0-51.0); %Monocytes 8.8 % (0.0-10.0); %Neutrophils 75.2 % (42.0-75.0); Hemoglobin 14.6 g/dL (14.0-18.0); Mean Corpuscular HGB CONC 34.1 g/dL (32.0-36.0); Mean Corpuscular Hemoglobin 32.4 pg (27.0-31.0); Mean Corpuscular Volume 94.8 fL (78.0-98.0); Mean Platelet Volume 7.4 fL (7.4-10.4); Platelet Count 281 thou/uL (130-400); RBC Distribution Width 11.7 % (11.5-14.5); Red Blood Cell (RBC) Count 4.53 mill/uL (4.70-6.10); White Blood Cell (WBC) Count 6.2 thou/uL (4.8-10.8)
--- NOTE | 2019-03-16 05:24 | PDOC.FM ---
- Subjective Subjective: Doing well this morning, no acute events overnight. Resting comfortably. Met with neurosurg yesterday, still reviewing images and determining plan. Pt states vision is mildly improved with less blurring. No fever/chills, CP, SOB. Otherwise at baseline. - Objective MAR Reviewed: Yes Vital Signs & Weight: Vital Signs (12 hours) Temp Pulse Resp BP Pulse Ox 03/16/19 04:13 97.7 F 60 16 101/59 L 96 03/15/19 23:59 97.7 F 65 16 97/56 L 94 L 03/15/19 19:27 98.6 F 70 16 117/60 94 L Weight Admit Weight 87.997 kg Weight 87.997 kg I&O: 03/14/19 03/15/19 03/16/19 06:59 06:59 06:59 Intake Total 300 620 Output Total 600 1050 Balance -300 -430 Result Diagrams: 03/16/19 04:59 03/16/19 04:59 Phys Exam - Physical Examination Constitutional: NAD (resting comfortably) HEENT: moist MMs Neck: supple Respiratory: no wheezing, no rales, no rhonchi, clear to auscultation bilateral Cardiovascular: RRR, no significant murmur, no rub Gastrointestinal: soft, no distention, positive bowel sounds Musculoskeletal: no edema, pulses present Dx/Plan (1) Brain mass Code(s): G93.89 - OTHER SPECIFIED DISORDERS OF BRAIN Status: Acute (2) History of DVT (deep vein thrombosis) Code(s): Z86.718 - PERSONAL HISTORY OF OTHER VENOUS THROMBOSIS AND EMBOLISM Status: Chronic (3) Hx of bladder cancer Code(s): Z85.51 - PERSONAL HISTORY OF MALIGNANT NEOPLASM OF BLADDER Status: Chronic - Plan Plan: 64 yo M with history bladder cancer with RUL Lung met and L occipital brain met , Hx of DVT in the past, CVA, Hx of Seizures, GERD, and HLD who presents with acute vision changes 2/2 occipital brain metastasis. #Brain Metastasis from Bladder Cancer with acute vision change - sxs started prior to admission, gradual worsening, now stable with blurred vision. Slightly improving with steroids. No other new focal deficits. - CT Brain (03/13/19): L occipital Intra-axial neoplastic tumor with surrounding vasogenic edema, large old infarct in R MCA, Sinonasal polyposis - MRI Brain (03/02/19): Interval slight increase metastatic deposit in L Occipital lobe. Solitary Metastatic deposit. Stable Encephalomalacia due to remote R MCA distribution infarction. - Dr. Jack was called by ED, appreciate recs - Dr. Faustin, Rad Onc, consulted, rec cont decadron and neurosurg consult for eval, apprec recs - Known to Dr. Baldwin, neurosurg consulted, still determining best plan and inpatient vs outpatient therapy, appre recs - Consulted PT/OT - Case Management & Acute Rehab Screening ordered to determine placement due to new onset vision loss #Hx of DVT - Was on coumadin previously, transitioned to th lovenox for malignancy-induced DVT as well as more easily reversed if surgery desired - Will need discussion for coumadin vs lovenox as outpatient therapy #Chronic Venous Ulcer - On Dorsum of L Foot, no acute changes, Wound Care consulted #Hx of Seizures - Continue home Dilantin #GERD - Continue home Protonix #HLD - Continue home Atorvastatin #Hx of CVA - continue home Baclofen - chronic L-sided weakness, stable, no acute changes Code Status: Full Diet: HHLSo Lines: Peripheral, SL DVT PPx: Th Lovenox GI PPx: Protonix PCP: Naye Disp: Admitted to Onc Obs, LOS < 48H. Pending neurosurg eval and recommendations. Addendum - Attending - Attending Attestation Date/Time: 03/16/19 1039 I personally evaluated the patient and discussed the management with Dr. Dial. I agree with the History, Examination, Assessment and Plan documented above with any addition or exceptions noted below. Patient overall stable. NSGY on board to determine timing for surgical intervention. May be nearing discharge if no plans to operate during this admission.
[2019-03-16 05:39] LABS: ALT (SGPT) 21 U/L (8-55); AST (SGOT) 21 U/L (5-34); Albumin 3.8 g/dL (3.4-4.8); Alkaline Phosphatase 125 U/L (40-110); Anion Gap 13 mmol/L (10-20); BUN (Urea Nitrogen) 8 mg/dL (8.4-25.7); Bilirubin, Total 0.3 mg/dL (0.2-1.2); Calc. Creatinine Clearance 145 mL/min (70-130); Calcium 8.9 mg/dL (7.8-10.44); Carbon Dioxide 24 mmol/L (23-31); Chloride 106 mmol/L (98-107); Estimated GFR-MDRD Greater than 90; Globulin 2.9 g/dL (2.4-3.5); Glucose 90 mg/dL (80-115); Potassium 3.5 mmol/L (3.5-5.1); Protein, Total 6.7 g/dL (5.8-8.1); Sodium 139 mmol/L (136-145)
--- NOTE | 2019-03-16 07:22 | PRG ---
DATE OF SERVICE: 03/16/2019 I saw Mr. An in the Oncology Unit this morning. He is known to our Neurosurgery practice. He had resection of brain metastasis in September and delay, but eventual radiation treatment for the resection cavity and then subsequently an increase in the contrast-enhancing mass in the left occipital lobe. It is unclear whether this represents radiation effect or tumor, but it is progressively enlarging. Now, his vision has been affected. The vitals have been stable. The neurological examination shows a larger field cut on the right. He already had a previous left field cut from a stroke. He has quite a narrow field of vision. Imaging has already been reviewed in clinic and is no different. I recommended surgery for Mr. An, but 10 or 11 days ago in the office, he did not want to pursue any more surgical intervention. Now, he is reconsidering that and wants to proceed. We will look at the surgical schedule and coordinate with the operating room to find the best time to reopen his craniotomy and resect more contrast-enhancing tissue. He has very high risk of permanent field cut after this surgery and he understands he will have a narrow field of vision or no vision at all and nonetheless wants to proceed. This is likely to happen next week. Job ID: [id number]
[2019-03-16] MEDS: Baclofen 10 MG TAB PO SCH (09:05)
[2019-03-16] MEDS: Dexamethasone 4 MG TAB PO SCH ×2 (09:05→12:10)
[2019-03-16] MEDS: Enoxaparin Sodium 80 MG/0.8 ML SYRINGE SC SCH (09:06)
[2019-03-16] MEDS: Nicotine 21 MG PATCH TD SCH (09:06)
[2019-03-16 13:36] VITALS: TEMP 98.1
[2019-03-16 13:45] VITALS: BP 91/53
--- NOTE | 2019-03-17 14:29 | DIS ---
DATE OF ADMISSION: 03/13/2019 DATE OF DISCHARGE: 03/16/2019 CONSULTS: Neurosurgery, Dr. Baldwin. PROCEDURES: 1. Brain CT on 03/13/2019, demonstrating no interval change. No acute findings. 2. Left occipital intraaxial neoplastic tumor with surrounding large area, vasogenic edema. Large old infarct in right middle cerebral artery territory; sinonasal polyposis. 3. Chest x-ray on 03/13/2019, demonstrating no acute cardiopulmonary findings. PRIMARY DIAGNOSIS: Brain metastasis of known bladder cancer with acute vision change. SECONDARY DIAGNOSES: 1. Metastatic bladder cancer. 2. History of DVT. 3. Chronic venous ulcer of the left foot. 4. History of seizures. 5. Gastroesophageal reflux disease. 6. Hyperlipidemia. 7. History of cerebrovascular accident. DISCHARGE MEDICATIONS: 1. Lovenox 80 mg subcu b.i.d. 2. Decadron 4 mg p.o. b.i.d. 3. Protonix 40 mg p.o. daily. 4. Zofran 4 mg p.o. q.6 hours p.r.n. 5. Dilantin 300 mg p.o. q.p.m. 6. Baclofen 10 mg p.o. b.i.d. 7. Atorvastatin 80 mg p.o. at bedtime. 8. Dilantin 200 mg p.o. q.a.m. Discontinued medications: 1. Warfarin 5 mg p.o. daily. HISTORY OF PRESENT ILLNESS AND HOSPITAL COURSE: The patient is a 64-year-old male with history of bladder cancer with right upper lobe lung mets and left occipital brain metastasis, history of DVT, CVA, history of seizures, GERD, hyperlipidemia, who presented to the emergency department for acute vision changes. The patient reported that his vision began to change the day prior to admission. He stated that it was like a" basketball sitting in front of his chest." He states that he had blurred vision and decreased peripheral vision, and this acutely worsened on the day of admission. He denied any other symptoms or other focal neurologic deficits. In the ED, a chest x-ray, CBC, and CMP were within normal limits. A CT brain showed a left occipital, intra-axial neoplastic tumor with surrounding vasogenic edema as described above. Imaging from 03/02/2019 of an MRI of his brain was reviewed and demonstrated interval slight increase in metastatic deposit in the left occipital lobe. His oncologist, Dr. Jack, was contacted by the ED, who recommended increasing his Decadron to 4 mg four times a day and to consult Dr. Faustin, radiation oncologist as for further evaluation and management. Once on the floor and continued on the steroids, his vision did slightly improve throughout his hospitalization. Dr. Faustin was consulted, who recommended neurosurgery consult as the patient had been evaluated previously for possible resection. The patient was continued to be transported to the [facility] for his routine radiation treatments throughout his hospitalization. Dr. Baldwin was consulted, who came and evaluated the patient and stated that he would recommend surgery; however, stated this would be a scheduled procedure, and the patient was safe for discharge. Regarding the patient's current medical conditions, his home medications were continued. The patient is on Coumadin for DVT, provoked or due to his cancer. Due to the nature of his DVT as well as the likelihood of surgery within the next week, it was determined the patient will be continued on Lovenox for DVT treatment at 1 mcg/kg b.i.d. At the time of the discharge, the patient was near his baseline with vision improved but not completely resolved with mild blurriness. He was able to ambulate and tolerate p.o. well. Discharge plan discussed with patient, who voiced agreement and understanding. Medications were reviewed and followup was discussed. All questions were answered appropriately. DISPOSITION: Stable. DISCHARGE INSTRUCTIONS: 1. Location: Home. 2. Diet: Regular. 3. Activity: As tolerated. 4. Followup: The patient to follow up with Dr. Baldwin as directed within the next week. The patient is to follow up with Dr. Yancey, his primary care doctor within 1 week, and the patient is to follow up with Dr. Jack and Dr. Faustin as directed. Job ID: [id number]
== END 2019-03-16 17:12 | disposition home or self-care (01) ==
LOC: ERS 20:43 → ONC 03-14 00:18
PROVIDERS: ADMIT Family Medicine; ATTEND Family Medicine
DX: C79.31 Secondary malignant neoplasm of brain (principal); C67.9 Malignant neoplasm of bladder, unspecified; C78.01 Secondary malignant neoplasm of right lung; G40.909 Epilepsy, unspecified, not intractable, without status epilepticus; K21.9 Gastro-esophageal reflux disease without esophagitis; E78.5 Hyperlipidemia, unspecified; I87.2 Venous insufficiency (chronic) (peripheral); Z86.73 Personal history of transient ischemic attack (TIA), and cerebral infarction without residual deficits; Z86.718 Personal history of other venous thrombosis and embolism; Z79.899 Other long term (current) drug therapy
CPT/HCPCS: 36415; 70450; 71045; 77386; 80053; 81003; 81015; 84484; 85025; 85610; 93005; 96372; G0378; J1650; J8540

== ENCOUNTER 2019-03-24 05:46 | Inpatient (IN) | payer MEDICARE, OTHER ==
--- NOTE | 2019-03-23 21:16 | HP ---
REASON FOR ADMISSION: 'I am here for brain tumor surgery." HISTORY OF PRESENT ILLNESS: Mika An is a 64-year-old gentleman, well known to our Neurosurgery Service, who underwent craniotomy for resection of a lung cancer metastasis to the posterior parietal lobe on the left side in September of 2018. There was a bit of delay in getting radiation therapy, but eventually had that to the surgical bed. Unfortunately, contrast-enhancing tissue has grown since radiation rather than trunk. In addition to that, he has lost some more peripheral vision slowly and progressively over time and instead of watching this with serial imaging, he has elected to have it removed. He is here for that operation. PAST MEDICAL HISTORY: 1. Lung cancer. 2. Metastases from #1. 3. Prior stroke. 4. Seizure disorder. 5. Gastroesophageal reflux. 6. Hyperlipidemia. 7. Bladder cancer. 8. Benign prostatic hypertrophy. 9. History of venous ulcer in left foot. PAST SURGICAL HISTORY: 1. Craniotomy for tumor resection. 2. Right knee surgery. 3. Cystoscopy. MEDICATIONS: 1. Dexamethasone. 2. Ipratropium bromide. 3. Baclofen. 4. Nexium. 5. Protonix. 6. Lovenox (held for 24 hours). 7. Dilantin. 8. Atorvastatin. 9. Coumadin (off this medication). 10. Aspirin (held). ALLERGIES: NO KNOWN DRUG ALLERGIES. SOCIAL HISTORY: Mr. An has a 50 pack-year history of smoking. He continued to smoke up until the discovery of his lung cancer. No alcohol or illicit drug use. He lives at home with his . Family history is notable for premature coronary artery disease. REVIEW OF SYMPTOMS: Otherwise negative. PHYSICAL EXAMINATION: Mr. An is a 64-year-old gentleman, who is generally ill appearing, comes in a wheelchair. His head tilts a bit to the right. His visual chung are constricted from the stroke affecting his left visual field and from tumor constricting the peripheral portion of his right visual field. His other cranial nerves are intact. He has a fairly dense left-sided hemiparesis/hemiplegia from his prior middle cerebral artery infarct. There is no right-sided weakness or sensory deficit. IMAGING FINDINGS: MR imaging of the brain reveals an increase in size of the contrast-enhancing lesion in the area of previous craniotomy, as well as T2 signal change around the lesion. There is mass effect from it. IMPRESSION: 1. Lung cancer metastasis. 2. Status post craniotomy. 3. Enlarging enhancing tissue which is either a tumor tissue or radiation effect. After a long discussion with Mr. An in hospital readmission, he has elected to have repeat surgery for this possible tumor. Informed Consent: I discussed indications, risks, benefits, alternatives, and expected outcomes from craniotomy for tumor resection. The risks we discussed included, but were not limited to, bleeding, infection, stroke, paralysis, worsening seizure disorder, dependence for care, coma, life-threatening hemorrhage, cardiopulmonary complications of anesthesia and . He understands all the risks and wants to proceed. Job ID: [id number]
[2019-03-24] MEDS ORDERED: Lidocaine 0.5%/Epinephrine 1:200,000 50 ml Vial ONE (06:11)
[2019-03-24] MEDS ORDERED: Thrombin 5000 UNITS/5 ML VIAL ONE (06:11)
[2019-03-24] MEDS ORDERED: Bacitracin Zinc Ointment 30 gm TUBE ONE (06:11)
[2019-03-24] MEDS ORDERED: levETIRAcetam 1000 MG/100 ML PREMIX BAG ONE (06:43)
[2019-03-24] MEDS ORDERED: Albumin 5% 0 ML ONE (06:43)
[2019-03-24] MEDS ORDERED: Propofol 1,000 MG/100 ML VIAL IV ONE ×2 (06:43→08:46)
[2019-03-24] MEDS ORDERED: levETIRAcetam 500 MG/100 ML PREMIX BAG ONE (06:43)
[2019-03-24] MEDS ORDERED: Fentanyl 250 MCG/5 ML VIAL ONE (06:44)
[2019-03-24 07:08] LABS: #Eosinphils 0.2 thou/uL (0.0-0.7); #Lymphocytes 1.1 thou/uL (1.20-3.40); #Monocytes 0.6 thou/uL (0.11-0.59); %Basophils 0.4 % (0.0-1.0); %Eosinophils 2.6 % (0.0-10.0); %Lymphocytes 16.2 % (21.0-51.0); %Monocytes 8.3 % (0.0-10.0); %Neutrophils 72.5 % (42.0-75.0); Hemoglobin 14.4 g/dL (14.0-18.0); Mean Corpuscular HGB CONC 33.1 g/dL (32.0-36.0); Mean Corpuscular Hemoglobin 32.6 pg (27.0-31.0); Mean Corpuscular Volume 98.5 fL (78.0-98.0); Mean Platelet Volume 9.1 fL (7.4-10.4); Platelet Count 135 thou/uL (130-400); RBC Distribution Width 12.1 % (11.5-14.5); Red Blood Cell (RBC) Count 4.42 mill/uL (4.70-6.10); White Blood Cell (WBC) Count 6.9 thou/uL (4.8-10.8)
[2019-03-24 07:15] LABS: Anion Gap 14 mmol/L (10-20); BUN (Urea Nitrogen) 8 mg/dL (8.4-25.7); Calc. Creatinine Clearance 137 mL/min (70-130); Calcium 8.8 mg/dL (7.8-10.44); Carbon Dioxide 19 mmol/L (23-31); Chloride 110 mmol/L (98-107); Estimated GFR-MDRD Greater than 90; Glucose 90 mg/dL (80-115); Potassium 4.4 mmol/L (3.5-5.1); Sodium 139 mmol/L (136-145)
[2019-03-24] MEDS ORDERED: Vecuronium 10 MG VIAL ONE ×3 (08:46→09:16)
[2019-03-24] MEDS ORDERED: Phenylephrine HCL 10 MG/ML VIAL ONE (08:58)
[2019-03-24] MEDS ORDERED: PHENYLEPHRINE-NS 100 MCG/ML 10 ML SYRINGE ONE (09:16)
[2019-03-24] MEDS ORDERED: Rocuronium Bromide 10 MG/ML (10ML VIAL) ONE (09:16)
[2019-03-24] MEDS ORDERED: PROPOFOL 200 MG/20 ML VIAL ONE (09:16)
[2019-03-24] MEDS ORDERED: ePHEDrine/0.9% NaCl/PF SYRINGE 50 mg/10 ml ONE (09:16)
[2019-03-24] MEDS ORDERED: Lidocaine 1% PF 5 ML VIAL ONE ×2 (09:16)
[2019-03-24] MEDS ORDERED: Ondansetron PF 4 MG/2 ML Vial ONE (09:16)
[2019-03-24] MEDS ORDERED: Dexamethasone 20 MG/5 ML VIAL ONE (09:16)
[2019-03-24] MEDS ORDERED: Fentanyl 100 MCG/2 ML VIAL ONE ×2 (10:46→12:04)
[2019-03-24] MEDS ORDERED: SUGAMMADEX SODIUM 500 MG/5 ML VIAL ONE (10:48)
[2019-03-24] MEDS ORDERED: Promethazine HCl 25 MG/ML VIAL IM PRN ×2 (10:51→11:24)
[2019-03-24] MEDS ORDERED: Morphine Sulfate 2 MG/ML SYRINGE SLOW IVP PRN (10:51)
[2019-03-24] MEDS ORDERED: Ondansetron HCl/PF 4 MG/2 ML Vial IVP PRN (10:51)
[2019-03-24] MEDS ORDERED: Promethazine HCl 25 MG/ML VIAL SLOW IVP PRN (10:51)
[2019-03-24] MEDS ORDERED: PACU-Morphine 4MG/ML VIAL SLOW IVP PRN (10:51)
[2019-03-24] MEDS ORDERED: diphenhydrAMINE 50 MG CAP PO PRN (11:24)
[2019-03-24] MEDS ORDERED: Morphine 4 MG/ML VIAL SLOW IVP PRN (11:24)
[2019-03-24] MEDS ORDERED: diphenhydrAMINE 50 MG/ML VIAL IVP PRN (11:24)
[2019-03-24] MEDS ORDERED: Cepastat Lozenges 1 LOZ PO PRN (11:24)
[2019-03-24] MEDS ORDERED: Docusate 100 MG CAP PO PRN (11:24)
[2019-03-24] MEDS ORDERED: Ondansetron PF 4 MG/2 ML Vial IVP PRN (11:24)
[2019-03-24] MEDS ORDERED: Labetalol HCl 100 MG/20 ML VIAL SLOW IVP PRN (11:24)
[2019-03-24] MEDS ORDERED: Promethazine HCl 12.5 MG SUPP PR PRN (11:24)
[2019-03-24] MEDS ORDERED: Promethazine 25 MG TAB PO PRN (11:24)
[2019-03-24] MEDS ORDERED: hydrALAZINE 20 MG/ML VIAL SLOW IVP PRN (11:24)
[2019-03-24] MEDS ORDERED: Acetaminophen 650 MG Suppository PR PRN (11:24)
[2019-03-24] MEDS ORDERED: HYDROcodone/Acetaminophen 7.5/325 mg Tablet PO PRN ×2 (11:24)
[2019-03-24] MEDS ORDERED: Morphine 2 MG/ML SYRINGE SLOW IVP PRN (11:24)
[2019-03-24] MEDS ORDERED: Ondansetron ODT 4 MG TAB PO PRN (11:27)
--- NOTE | 2019-03-24 11:39 | OP ---
DATE OF PROCEDURE: 03/24/2019 NIGHT BAKER: Demian Clinton PA-C PREOPERATIVE INDICATION: Make diagnosis, prevent neurological deterioration. PREOPERATIVE DIAGNOSIS: Left parietal lesion, possible recurrent tumor or radiation necrosis. POSTOPERATIVE DIAGNOSIS: Left parietal lesion, possible recurrent tumor or radiation necrosis. PROCEDURE PERFORMED: Reopening left parietal craniotomy, BrainLAB stereotactic-assisted resection of left parietal lesion. PREOPERATIVE MEDICATIONS: Ancef 2 g IV. DRAIN TYPE: Zero. DRAIN TYPE: None. DESCRIPTION OF PROCEDURE: The patient was brought to the operating room. General endotracheal anesthesia was induced. The patient was placed in right lateral decubitus position and his head immobilized with a Schaffer pin and head and neck surgeon. Using the [employer] navigation system and preoperative BrainLAB protocol, MRI scan and surface registration techniques, we used our [employer] system to map 3 dimensional stereotactic space around the patient's head. This registration was confirmed with surface anatomic landmarks. We then removed hair from the left parieto-occipital region of the scalp and visualized the previous incision. We marked out his previous incision and infused local anesthetic under it. The left parieto-occipital scalp was sterilely prepped and draped. We opened the previous incision with a 10 blade knife and controlled bleeding with monopolar cautery. We folded the scalp flap inferiorly and kept it held in place under suture retraction. We then loosened the craniotomy skull plates by removing the screws from the intact skull. The skull flap was removed using a periosteal elevator and taken out of the field. Scar tissue and dura were covering the brain. We irrigated copiously with bacitracin irrigation. We gently incised the dura in the same cruciate fashion that we had used previously, but the dura was intimately associated with the kvng and stuck to it. In fact, it was essentially part of the brain over the surface of the tumor. We had to incise the dura around the surface presentation of the tumor and began our resection there. The operative microscope was brought into the field. Under microscopic magnification and using microsurgical techniques, we developed the plane around the abnormal tissue within the gliotic normal brain. The BrainLAB navigation system confirmed that we were at the tumor edge. We continued our circumferential dissection until we were deep to the tumor and then we removed it in 3 large fragments. We inspected the resection cavity. Superiorly and laterally, there was a little bit of residual tumor that was easily removed. We irrigated copiously with bacitracin irrigation. We controlled bleeding with gentle bipolar cautery. We confirmed our resection cavity, encompassed the entire abnormality on the imaging with the BrainLAB system. We recreated the dural layer with Surgicel and we reattached the bone flap with the same plates and screws that he had previously. We treated the scalp with vancomycin powder. We closed with vertical mattress sutures and we applied a sterile dressing. The patient was taken out of the [place] pin and head and neck surgeon. This was a clean case, no contamination. Job ID: [id number]
[2019-03-24] MEDS: Dexamethasone 4 mg/ml Vial SLOW IVP SCH ×2 (13:42→18:22)
[2019-03-24] MEDS: CEFAZOLIN 2 GM in Premix Bag 1 BAG IVPB SCH ×2 (13:43→22:30)
[2019-03-24 14:30] VITALS: BMI 24.5
[2019-03-24] MEDS ORDERED: Fosphenytoin Sodium 100 mg/2 ml Vial IVPB SCH (15:00)
[2019-03-24] MEDS: Fosphenytoin Sodium 100 MG in Sodium Chloride 0.9% 50 ML IVPB SCH ×2 (15:50→20:13)
--- NOTE | 2019-03-24 16:23 | CON ---
DATE OF CONSULTATION: 03/24/2019 REASON FOR CONSULTATION: Postoperative CCU management. Following encompasses 70 minutes time, of that time greater than 50% spent with the patient and/or the patient's unit in the hospital. HISTORY OF PRESENT ILLNESS: A 64-year-old male, who underwent a left parietal lobe tumor resection today. He has been having headaches and visual field changes. He has known lung cancer. It is non-small cell cancer. I am not clear how that has been treated, although he has multiple visits with Dr. Faustin, so I think he probably had radiation therapy. PAST MEDICAL HISTORY: 1. Lung cancer with brain metastasis. 2. Seizure disorder. 3. Gastroesophageal reflux. 4. Hyperlipidemia. 5. Bladder cancer. 6. Benign prostatic hypertrophy. 7. Venous ulcer in the left foot. PAST SURGICAL HISTORY: 1. Craniotomy for tumor resection. 2. Right knee surgery. 3. Cystoscopy. CURRENT MEDICATIONS: 1. Tylenol. 2. Lipitor. 3. Baclofen. 4. Decadron. 5. Colace. 6. . 7. Fentanyl. 8. Apresoline. 9. Normodyne. 10. Morphine. 11. Dilantin. OUTPATIENT MEDICATIONS: 1. Decadron. 2. Baclofen. 3. Protonix. 4. Zofran. 5. Lovenox. 6. Dilantin. ALLERGIES: NONE. SOCIAL HISTORY: Fifty pack-year history of smoking. Apparently smoking at the time of his lung cancer diagnosis. REVIEW OF SYSTEMS: Cannot be obtained as he is currently in the recovery room still under the effects of anesthesia. PHYSICAL EXAMINATION: VITAL SIGNS: Temperature 98, pulse 85, respirations 20. GENERAL: He is arousable, in no distress. HEENT: Remarkable for a bandage around his occiput. Oropharynx clear. NECK: No adenopathy or JVD. CHEST: Clear to auscultation. No wheezing. CARDIAC: S1, S2 regular without murmur. ABDOMEN: Soft and nontender. EXTREMITIES: No clubbing, cyanosis, or edema. Chest x-ray shows no mass, effusion, or infiltrate. ASSESSMENT: 1. Postop from craniotomy for metastatic tumor resection. 2. Previous tobacco abuse. 3. History of lung cancer. PLAN: The patient will be placed in the CCU at least overnight. I will give him nebs for his smoking history and likely underlying COPD. Noted, he was on anticoagulation at the time of admission. I am not sure why that was. Anticoagulation seem to be contraindicated at the current time given his surgery, but we may need to rethink starting that in the future. Job ID: [id number]
[2019-03-24] MEDS: Sodium Chloride 0.9% 1,000 ML IV SCH (20:12)
[2019-03-24] MEDS: Baclofen 10 MG TAB PO SCH (20:12)
[2019-03-24] MEDS: Atorvastatin Calcium 40 MG TAB PO SCH (20:13)
[2019-03-25] MEDS: Dexamethasone 4 mg/ml Vial SLOW IVP SCH ×5 (00:02→23:53)
[2019-03-25] MEDS: Sodium Chloride 0.9% 1,000 ML IV SCH ×2 (00:08→16:10)
--- NOTE | 2019-03-25 07:10 | PRG ---
DATE OF SERVICE: 03/25/2019 Mr. An is one day out from craniotomy for resection of tumor or radiation necrosis from the posterior parietal lobe on the left side. He tolerated the procedure well and was stable overnight in the ICU. This morning, Mr. An notes that his vision has not improved since before surgery. His vital signs have been stable. He has good neurological function on the right side. He has a dense left hemiparesis from a prior stroke on the left. His visual field is markedly constricted with a complete homonymous on his left and partial on the right. We are awaiting pathology. We will move Mr. An to the floor today. Once he is safe for activities of daily living, he can be discharged. He needs to be on a slow Decadron taper and Protonix at discharge. Histopathology will be available late next week. Job ID: [id number]
[2019-03-25] MEDS: Baclofen 10 MG TAB PO SCH ×2 (08:23→20:53)
--- NOTE | 2019-03-25 08:34 | PRG ---
DATE OF SERVICE: 03/25/2019 SUBJECTIVE: He is doing well. He is eating this morning. His headache is better. OBJECTIVE: VITAL SIGNS: His temperature is 98.2, pulse 60, blood pressure 101/59, O2 saturation 95%. HEENT: Has bandage on. NECK: No JVD. CHEST: Clear. CARDIAC: S1, S2 regular. ABDOMEN: Soft. EXTREMITIES: No edema. ASSESSMENT: 1. Status post brain met resection. 2. Lung cancer. PLAN: He is stable for transfer to the floor. No further Pulmonary recommendations at this time. We will be available as needed. Job ID: [id number]
[2019-03-25] MEDS: Fosphenytoin Sodium 100 MG in Sodium Chloride 0.9% 50 ML IVPB SCH (16:08)
[2019-03-25] MEDS ORDERED: FLU VACC TS2019-20(65YR UP)/PF 180 MCG/0.5 ML SYRINGE IM ONE (16:30)
[2019-03-25] MEDS: Acetaminophen 325 MG TAB PO PRN (17:36)
[2019-03-25] MEDS: Atorvastatin Calcium 40 MG TAB PO SCH (20:53)
[2019-03-25] MEDS ORDERED: Tamsulosin HCl 0.4 MG CAP PO SCH (23:59)
[2019-03-26] MEDS: Sodium Chloride 0.9% 1,000 ML IV SCH (02:58)
[2019-03-26] MEDS: Dexamethasone 4 mg/ml Vial SLOW IVP SCH ×2 (05:28→12:00)
[2019-03-26] MEDS: Baclofen 10 MG TAB PO SCH (08:55)
[2019-03-26] MEDS: Acetaminophen 325 MG TAB PO PRN (11:59)
[2019-03-26 15:19] VITALS: BP 98/59; TEMP 98.6
--- NOTE | 2019-03-27 16:13 | DIS ---
DATE OF ADMISSION: 03/24/2019 DATE OF DISCHARGE: 03/26/2019 Mr. An was admitted to [facility] by Dr. Ivan Baldwin on March 24, 2019, subsequently discharged on March 26, 2019. ADMISSION DIAGNOSES: Visual change, intracranial mass, status post occipital craniotomy and tumor resection. DISCHARGE DIAGNOSES: Visual change, intracranial mass, status post occipital craniotomy and tumor resection. HOSPITAL COURSE: Mr. An's hospital course was uncomplicated. Consultations were ordered to PT/OT and to inpatient medicine. He spent one night in the ICU and then one night on the floor. manager state consultation was ordered for assistance with obtaining bed rails for home, but ultimately was discharged in stable condition with outpatient followup planned in 2 weeks. He will be on a Decadron taper over that time. Job ID: [id number]
== END 2019-03-26 17:09 | disposition home or self-care (01) | DRG 26 ==
LOC: SURG A 05:46 → CCU 13:16 → SURG A 03-25 16:07
PROVIDERS: ADMIT Neurological Surgery; ATTEND Neurological Surgery
PROC: 00B70ZZ Excision of Cerebral Hemisphere, Open Approach (ICD-10-PCS; principal; 2019-03-24)
DX: C79.31 Secondary malignant neoplasm of brain (principal); C71.4 Malignant neoplasm of occipital lobe; I69.354 Hemiplegia and hemiparesis following cerebral infarction affecting left non-dominant side; C34.90 Malignant neoplasm of unspecified part of unspecified bronchus or lung; K21.9 Gastro-esophageal reflux disease without esophagitis; G40.909 Epilepsy, unspecified, not intractable, without status epilepticus; E78.5 Hyperlipidemia, unspecified; N40.0 Benign prostatic hyperplasia without lower urinary tract symptoms; Z85.51 Personal history of malignant neoplasm of bladder; Z79.899 Other long term (current) drug therapy; Z87.891 Personal history of nicotine dependence; Z79.52 Long term (current) use of systemic steroids; Z79.82 Long term (current) use of aspirin
CPT/HCPCS: 36415; 80048; 85025; 86850; 86900; 86901; 88307; 88331; 88334; 88341; 88342; 94640; J0690; J1100; J1953; J2001; J2370; J2405; J2704; J3010; J3370; J3490; J7620; P9045; Q2009

== ENCOUNTER 2019-04-26 17:14 | Observation (INO) | payer MEDICARE, OTHER ==
[2019-04-26] MEDS ORDERED: Ondansetron PF 4 MG/2 ML Vial ONE (18:35)
[2019-04-26] MEDS ORDERED: Fentanyl 100 MCG/2 ML VIAL ONE ×2 (18:35→20:28)
--- NOTE | 2019-04-26 18:44 | RAD ---
EXAM: LEFT HIP TWO VIEWS: 04/26/19 HISTORY: Injury from a fall. FINDINGS: Left hip joint osteoarthrosis. Minimally displaced fracture involving the left superior ischiopubic r amus with possible hairline nondisplaced fracture through the inferior ischiopubic ramus. Slight irre gularity in the region of the left sacral ala possibly a nondisplaced pelvic fracture as well. IMPRESSION: Minimally displaced fracture involving the left superior ischiopubic ramus. No acute hip or femur fra cture. Possible fractures of the left inferior ischiopubic ramus and left sacrum as well. Follow-up A P pelvis might be of benefit. POS: RRE
--- NOTE | 2019-04-26 19:11 | CT ---
CT HEAD WITHOUT IV CONTRAST COMPARISON: 03/13/2019 HISTORY: Injury after a fall. C-spine precautions. History of stroke and left-sided paralysis. TECHNIQUE: Axial CT imaging at 5 mm intervals from vertex through skull base without contrast FINDINGS: Again noted is a large area of encephalomalacia and associated gliosis involving the right middle cer ebral artery distribution and unchanged from the prior study. There is adjacent ex vacuo dilatation right lateral ventricle. Left parietal craniotomy defect is present. The large area of vasogenic edema as well as the increase d density mass in the left parietal-occipital lobe is not seen on the current study. There is a small area of encephalomalacia and additional area of diminished attenuation. These findings are prob ably attributable to prior postsurgical changes and treatment of neoplastic process left parietal-occipital lobe noted on prior exam. There is less sulcal effacement and mass effect on the l eft lateral ventricle compared to the prior exam. No intratracheal or extra-axial hemorrhage is identified, and no acute cortical infarction is seen. Sinus disease again involves the ethmoidal air cells bilaterally as well as a mucus retention cyst in the right maxillary antrum. Mucosal thickening is present in the left sphenoid sinus. A few minimal mastoid effusions are seen bilaterally. No other interval change. IMPRESSION: 1. No acute intracranial abnormality demonstrated. 2. Large area of encephalomalacia right middle cerebral artery distribution likely related to remote infarction. 3. Previously seen lobulated increased density mass with large area of vasogenic edema involving the left parietal occipital lobe is no longer visualized. There is an area of encephalomalacia in this region with small area of diminished attenuation which may be related to postoperative changes. Resid ual neoplastic process would be difficult to exclude, but no increased density mass is seen as was appreciated on the prior exam, and the large area of vasogenic edema has resolved with improvement in sulcal effacement and mass effect on the left lateral ventricle.
--- NOTE | 2019-04-26 19:20 | CT ---
EXAM: CT cervical spine PROVIDED CLINICAL HISTORY: Cervical spine precautions after falling backwards. History of prior stroke with left-sided paralysis . TECHNIQUE: Contiguous axial CT images are obtained through the cervical spine from the skull base to the T1-2 le reggie. Sagittal and coronal reformatted images are provided. COMPARISON: PET/CT exam on 01/14/2019 FINDINGS: No evidence for fracture or traumatic subluxation. Scattered mild degenerative changes are seen in the cervical spine with findings greatest at the C5-6 level where there is a disc osteophyte complex and calcification of the posterior margin of the intervertebral disc versus calcification of the posterior longitudinal ligament. This does result in effacement of ventral subarachnoid space and probably contacts the anterior aspect of the spinal cord. There is mild bony encroachment on each neural foramen at this level. No prevertebral soft tissue swelling apparent. A right apical pulmonary nodule is seen measuring 1.7 cm also seen on prior PET CT scan examination. Evidence of COPD is present in the upper lobes bilaterally. Pleural thickening versus pleural-based nodular density at the medial right lung apex is also seen but was not appreciated on prior exam. Visualized thyroid gland demonstrates a grossly normal nonenhanced CT appearance. There is increased uptake of radiotracer seen on prior PET CT scan exam which is difficult to appreci ate on this nonenhanced CT exam. IMPRESSION: 1. No evidence for fracture or traumatic subluxation. 2. Degenerative changes in the cervical spine greatest at C5-6 level. 3. Right upper lobe pulmonary nodule posterior right lung apex with pleural based nodularity at the m edial right lung apex not well appreciated on prior PET/CT exam. An additional nodule in this region is a possibility versus pleural thickening..
--- NOTE | 2019-04-26 19:26 | CT ---
EXAM: LUMBAR SPINE CT SCAN WITHOUT IV CONTRAST: 04/26/19 HISTORY: Injury from trauma. FINDINGS: There is a mild compression fracture of the superior end plate of T12. No evidence of retropulsion. A ge is indeterminate although it certainly could be acute. At L3-L4, there is moderate to severe central canal and lateral recess stenosis and foraminal stenosi s. At L4-L5, there is very severe central canal and lateral recess and foraminal stenosis. At L5-S1, there is bilateral foraminal stenosis. The left sacrum demonstrates a nondisplaced fracture which would go along with the previously noted l eft sided pelvic fractures. IMPRESSION: Mild vertical height loss of T12 vertebral body evidence for mild compression fracture without retrop ulsion, age indeterminate. Essentially nondisplaced left sacral ala fracture. Multilevel variable severity lumbar spine canal, lateral recess, and foraminal stenosis. POS: RRE
--- NOTE | 2019-04-26 19:38 | RAD ---
EXAM: AP PELVIS ONE VIEW: 04/26/19 HISTORY: Pelvic pain following injury from trauma. FINDINGS: Very minimally displaced fracture of the left superior ischiopubic ramus and nondisplaced fracture of the left inferior ischiopubic ramus and nondisplaced vertical fracture of the left sacral ala region . No evidence for acute hip fracture. IMPRESSION: Left sided pelvic fractures. POS: RRE
[2019-04-26 20:27] LABS: Anion Gap 16 mmol/L (10-20); BUN (Urea Nitrogen) 11 mg/dL (8.4-25.7); Calc. Creatinine Clearance 0 mL/min (70-130); Calcium 8.7 mg/dL (7.8-10.44); Carbon Dioxide 20 mmol/L (23-31); Chloride 105 mmol/L (98-107); Estimated GFR-MDRD Greater than 90; Glucose 152 mg/dL (80-115); Potassium 4.2 mmol/L (3.5-5.1); Sodium 137 mmol/L (136-145)
[2019-04-26 21:22] LABS: Hemoglobin 14.5 g/dL (14.0-18.0); Mean Corpuscular HGB CONC 35.1 g/dL (32.0-36.0); Mean Corpuscular Hemoglobin 33.6 pg (27.0-31.0); Mean Corpuscular Volume 95.5 fL (78.0-98.0); RBC Distribution Width 12.2 % (11.5-14.5); Red Blood Cell (RBC) Count 4.32 mill/uL (4.70-6.10)
[2019-04-26 21:41] LABS: Band 26 % (5-11); Lymphocytes 6 % (21-51); MDiff Complete? YES; Mean Platelet Volume 8.9 fL (7.4-10.4); Monocytes 2 % (0-10); Neutrophil 66 % (42-75); Platelet Count 207 thou/uL (130-400); Platelet Morphology Comment Appears Adequate; White Blood Cell (WBC) Count 18.6 thou/uL (4.8-10.8)
[2019-04-26 22:53] LABS: INR-International Normal Ratio 1.7; Prothrombin Time 19.9 SEC (12.0-14.7)
[2019-04-27] MEDS ORDERED: Fentanyl 100 MCG/2 ML VIAL ONE (01:28)
[2019-04-27 02:33] LABS: Bilirubin Negative (Negative); Blood, Urine Negative (Negative); Clarity Clear (Clear); Glucose, Urine (Dipstick) Normal (Negative); Leukocyte Negative Leu/uL (Negative); Nitrite Negative (Negative); Protein, Urine (Dipstick) 20 mg/dL (Neg-Trace); Urobilinogen Normal mg/dL (Less than 2)
[2019-04-27] MEDS ORDERED: Cyclobenzaprine 10 MG TAB PO PRN (02:58)
[2019-04-27] MEDS ORDERED: Ondansetron PF 4 MG/2 ML Vial IVP PRN (02:58)
[2019-04-27] MEDS ORDERED: Ondansetron ODT 4 MG TAB PO PRN (02:58)
[2019-04-27] MEDS ORDERED: Ibuprofen 800 MG TAB PO PRN (02:58)
[2019-04-27] MEDS ORDERED: traMADol HCl 50 MG TAB PO PRN (02:58)
[2019-04-27] MEDS ORDERED: Dextrose 50% Abboject 50 ML SYRINGE SLOW IVP PRN (02:58)
[2019-04-27] MEDS ORDERED: Dextrose 5% in Water 1,000 ML IV PRN (02:58)
[2019-04-27] MEDS ORDERED: Sodium Chloride 0.9% 1,000 ML IV SCH (04:45)
[2019-04-27] MEDS: Acetaminophen 325 MG TAB PO SCH ×3 (04:55→17:00)
--- NOTE | 2019-04-27 05:33 | HP ---
REQUESTING PHYSICIAN: Dr. Diaz. ATTENDING SURGEON: Dr. Arredondo. HISTORY OF PRESENT ILLNESS: The patient is a 64-year-old man, who primarily gets around by wheelchair. He was transferring from chair to wheelchair when he fell and landed on his left hip. He was brought to the emergency department, where he underwent evaluation and examination and was noted to have superior and inferior pubic rami fractures and age indeterminate compression fracture of T12. The patient was initially screened to go to rehab, but because of an elevated white blood cell count, rehab denied him until the source of the elevated white blood cell count was determined. The patient denies any recent illnesses other than some seasonal allergies. He denies fevers, chills, night sweats, nausea, vomiting or diarrhea. The patient does have ulceration to the dorsum of his left foot, which he states his has been "doctoring" and applying salves to it. The patient does have left-sided paralysis due to a brain cancer that makes it difficult for him to feel his left side and use it. The patient denied hitting his head or any loss of consciousness. ALLERGIES: NONE. CURRENT MEDICATIONS: 1. Baclofen. 2. Dilantin. 3. Protonix. 4. Coumadin. 5. Atorvastatin. PAST MEDICAL HISTORY: 1. Lung cancer. 2. Metastasis from #1. 3. Brain mass with excision x2. 4. History of bladder cancer. 5. History of DVT. 6. History of seizure disorder. 7. History of gastroesophageal reflux disease. 8. History of hyperlipidemia. 9. History of BPH. 10. History of venous ulcer in left foot noted on H and P of 03/24/2019. PAST SURGICAL HISTORY: Craniotomy for tumor resection x2, right knee surgery, cystoscopy. SOCIAL HISTORY: The patient has a 50 pack-year history of smoking. He denies drug or alcohol use. He lives at home with his . REVIEW OF SYSTEMS: A 10-point review of systems is negative as otherwise stated. PHYSICAL EXAMINATION: VITAL SIGNS: Blood pressure 117/61, heart rate 94, respirations 20, and oxygen saturation 95% on room air, and temperature is 98.7. GENERAL: The patient resting comfortably in bed. He is awake, alert, conversant, appropriate. [place] Coma Scale is 15 HEENT: Head is normocephalic, atraumatic. Eyes, extraocular motion intact. PERRLA bilaterally. Nose, atraumatic without discharge. Oropharynx is clear. NECK: Nontender. Trachea is midline. CHEST: Clear to auscultation with good inspiratory and expiratory effort. HEART: Regular rate and rhythm. ABDOMEN: Soft, nontender with active bowel sounds. Pelvis is stable with pain to the groin area consistent with his fractures. EXTREMITIES: The patient has left-sided paralysis. The left dorsum of his foot is noted to be swollen with ulceration with surrounding erythema without discharge. The left anterior mid lux area also has an area of likely be a stage I pressure ulcer. Capillary refill in the left lower extremity is approximately 3 seconds. Other extremities it is less than 3 seconds. BACK: Atraumatic and nontender. LABORATORY FINDINGS: WBC 18.6, hemoglobin 14.5, hematocrit 41.3, platelets 207. Sodium 137, potassium 4.2, chloride 105, CO2 of 20, BUN 11, creatinine 0.69, glucose 152. PT 20, INR 1.7, and PTT 31. Urinalysis is unremarkable. CT of the brain without contrast shows no acute intracranial abnormality demonstrated. Multiple chronic and postoperative changes are noted. CT of the C-spine without contrast shows no evidence of fracture or traumatic subluxation. AP pelvis x-ray shows left superior and inferior pubic rami fractures. There is a nondisplaced vertical fracture of the left sacral ala. Views of the left hip again show the pelvic fracture, the femur is intact. CT scan of the lumbar spine without contrast shows a mild vertical height loss of T12, age indeterminate. ASSESSMENT: 1. Status post fall, transferring from chair to wheelchair. 2. Acute pain secondary to above. 3. History of brain mass. 4. History of lung and bladder cancer. 5. History of deep venous thrombosis, on Coumadin. 6. History of hypertension and hyperlipidemia. PLAN: Plan will be to admit the patient to the surgical floor for observation. Repeat his labs in the morning. We cultured his stasis ulcer. We also sent urinalysis for culture. We will do pain control pulmonary toilet, gastritis, mechanical VTE prophylaxis. The evaluation, examination, laboratory, and radiographic findings will be discussed with Dr. Arredondo after this dictation. Job ID: [id number]
[2019-04-27 05:47] LABS: #Eosinphils 0.1 thou/uL (0.0-0.7); #Lymphocytes 0.6 thou/uL (1.20-3.40); #Monocytes 0.9 thou/uL (0.11-0.59); #Neutrophils 8.7 thou/uL (1.40-6.50); %Basophils 0.2 % (0.0-1.0); %Eosinophils 0.6 % (0.0-10.0); %Lymphocytes 6.3 % (21.0-51.0); %Monocytes 8.5 % (0.0-10.0); %Neutrophils 84.4 % (42.0-75.0); Hemoglobin 12.8 g/dL (14.0-18.0); Mean Corpuscular HGB CONC 34.7 g/dL (32.0-36.0); Mean Corpuscular Hemoglobin 33.5 pg (27.0-31.0); Mean Corpuscular Volume 96.5 fL (78.0-98.0); Platelet Count 250 thou/uL (130-400); RBC Distribution Width 11.9 % (11.5-14.5); Red Blood Cell (RBC) Count 3.84 mill/uL (4.70-6.10); White Blood Cell (WBC) Count 10.2 thou/uL (4.8-10.8)
[2019-04-27 05:51] LABS: Hemoglobin A1c 5.4 % (4.0-6.0)
[2019-04-27] MEDS ORDERED: Vancomycin 1.5 GRAM/300 ML BAG 1.5 GM in Premix Bag 1 BAG IVPB SCH (06:00)
[2019-04-27 06:11] LABS: Anion Gap 14 mmol/L (10-20); BUN (Urea Nitrogen) 8 mg/dL (8.4-25.7); Calc. Creatinine Clearance 135 mL/min (70-130); Calcium 8.2 mg/dL (7.8-10.44); Carbon Dioxide 18 mmol/L (23-31); Chloride 107 mmol/L (98-107); Estimated GFR-MDRD Greater than 90; Glucose 115 mg/dL (80-115); Magnesium 1.8 mg/dL (1.6-2.6); Phosphorus 2.5 mg/dL (2.3-4.7); Potassium 4.3 mmol/L (3.5-5.1); Sodium 135 mmol/L (136-145)
[2019-04-27] MEDS ORDERED: Prevnar 13-Val Conj/PF 0.5 ML SYRINGE IM ONE (09:00)
[2019-04-27] MEDS ORDERED: Vancomycin HCl 1 GM in Premix Bag 1 BAG IVPB SCH (09:00)
[2019-04-27] MEDS ORDERED: Famotidine 20 MG TAB PO SCH (09:00)
[2019-04-27] MEDS ORDERED: FLU VACC TS2019-20(65YR UP)/PF 180 MCG/0.5 ML SYRINGE IM ONE (09:00)
--- NOTE | 2019-04-27 09:03 | CON ---
DATE OF CONSULTATION: 04/27/2019 This is Andreina Ingram PA-C dictating a report for Mahendra Sims MD. REQUESTING PHYSICIAN: [facility]. CONSULTING PHYSICIAN: Mahendra Sims M.D. REASON FOR CONSULTATION: Pelvic fractures. HISTORY OF PRESENT ILLNESS: This is a 64-year-old man who primarily gets around in his wheelchair. He states he was transferring from his wheelchair to his recliner yesterday, when he fell and landed onto his left hip and left buttock. He was brought to the emergency department where workup revealed superior and inferior pubic rami fractures as well as the sacral ala fracture. He was initially screened to go to a rehab, but because of an elevated white blood cell count, he was denied and has been admitted for further evaluation. We are seeing him up on [place]-3 today. He currently reports that he has a history of a stroke, which is why he gets around in a wheelchair. This affects his left side. He does have some burning and tingling sensation in his left foot, which is normal, but the remainder of his sensation in his left lower extremity is decreased. He does not have any complaints at this time. PAST MEDICAL HISTORY: 1. Lung cancer. 2. Metastasis from lung cancer. 3. Brain mass with excision x2. 4. History of bladder cancer. 5. History of DVT. 6. History of seizure disorder. 7. History of gastroesophageal reflux disease. 8. History of hyperlipidemia. 9. History of BPH. 10. History of venous ulcer in the left foot noted from a history and physical in February of 2019. PAST SURGICAL HISTORY: Craniectomy for tumor resection x2, right knee surgery, cystoscopy. SOCIAL HISTORY: The patient has a [id number] history of smoking. He denies drug or alcohol use. He lives at home with his . He is wheelchair bound. REVIEW OF SYSTEMS: Ten-point review of systems conducted and otherwise negative except for stated above. PHYSICAL EXAMINATION: VITAL SIGNS: Current vital signs show temperature of 98.1, pulse of 75, blood pressure of 99/56, respiratory rate of 20, O2 saturation of 100% on 4 L of nasal cannula. GENERAL: The patient is lying supine in bed. There is no family present at bedside at this time. He is pleasant and cooperative with exam today. He answers all questions appropriately. HEENT: Head is normocephalic and atraumatic. NECK: Supple. Trachea midline. Breathing is nonlabored. EXTREMITIES: Evaluation of the left lower extremity shows the leg to be held in a position of comfort with the knee flexed to approximately 80 degrees with a pillow underneath. This lower extremity was evaluated. He has a negative log roll exam. He has no tenderness to palpation along the knee or along the pelvis. I am able to passively move his hip without any discomfort elicited. He is unable to move his toes on this side. He has asked that I not touch his foot because of his neuropathy. RADIOGRAPHIC IMAGING: Reviewed including an AP pelvis x-ray shows evidence of left superior and inferior pubic rami with a vertical fracture through the left sacral ala. IMPRESSION: Multiple pelvic fractures. PLAN: At this time, I have discussed the patient that his fractures appear to be nonoperative. He primarily does transfers from bed to chair or recliner to his wheelchair. He can weight bear as tolerated for these transfers. His pain may limit this somewhat, but he verbalizes understanding that this is a nonsurgical fracture. The patient may go to rehab as a bed becomes available and he is medically cleared. Job ID: [id number]
--- NOTE | 2019-04-27 10:10 | RAD ---
RADIOGRAPH CHEST 1 VIEW: DATE: 04/27/2019 TIME: 9:35 AM HISTORY: 64-year-old male with leukocytosis. COMPARISON: 03/13/2019 FINDINGS: Lung volumes are lower on the current study due to shallow inspiration, making this a somewhat limite d study. New finding of a small patchy airspace opacity effacing the left lateral costophrenic angle. No pulmonary edema or pneumothorax. IMPRESSION: New small nonspecific airspace density at left lateral lung base: Atelectasis versus infiltrate. Shor t interval follow-up recommended.
[2019-04-27] MEDS: traMADol HCl 50 MG TAB PO PRN ×2 (10:17→16:59)
[2019-04-27] MEDS ORDERED: cefTRIAXone\\ROCEPHIN 2 GM in Sodium Chloride 0.9% 100 ML IVPB SCH (12:00)
[2019-04-27 15:45] VITALS: BP 108/69; TEMP 98.1
[2019-04-27] MEDS ORDERED: Magnesium Chloride 64 MG TAB PO SCH (21:00)
--- NOTE | 2019-04-28 13:47 | DIS ---
DATE OF ADMISSION: 04/27/2019 DATE OF DISCHARGE: 04/27/2019 ADMISSION DIAGNOSES: 1. Status post mechanical fall. 2. Age indeterminate of the pelvic fracture and T12 compression fracture. 3. History of lung and bladder cancer. 4. Brain mass with craniotomy and resection. 5. Deep venous thrombosis, on Coumadin. 6. Hypertension. 7. Left-sided paraplegia. DISCHARGE DIAGNOSES: 1. Status post mechanical fall while transferring from chair to wheelchair. 2. Age indeterminate pelvic fracture and T12 compression fracture, conservative treatment. 3. History of lung and bladder cancer. 4. History of deep venous thrombosis, on Coumadin. 5. History of brain mass with left-sided hemiplegia. 6. Hypertension. CONSULTING PHYSICIAN: Dr. Mahendra Sims. PROCEDURE: None. HOSPITAL COURSE: Mr. An is a 64-year-old male with history of multiple severe comorbidity condition include lung and bladder cancer, brain tumor resection with left hemiplegia, also sustained a pubic rami fracture with age-indeterminate compression fracture of T12. Orthopedics, Dr. Sims was consulted. Conservative treatment was recommended. The patient was admitted for pain control. The patient's pain was more controlled. He tolerated with regular diet. Vital signs have been stable. He also suffered from left foot ulceration chronic for 2 months. His white count elevated at the admission, but recheck of his white count returned to normal. The patient accepted to go to rehabilitation facility for continued care and physical therapy, occupational therapy. PHYSICAL EXAMINATION: GENERAL: Currently, the patient is lying in bed comfortably with no acute respiratory distress. VITAL SIGNS: Heart rate 90, respiratory rate 20, O2 saturation 95% on room air, blood pressure 120/60, temperature 98.7. LUNGS: Clear bilaterally. HEART: Regular rate and rhythm. ABDOMEN: Soft, nondistended. EXTREMITIES: Left thigh paralysis, chronic and left dorsum of his foot ulceration chronic for 2 months. Dressing clean and dry. NEUROLOGIC: GCS 15. The patient is alert, awake, and oriented x3. Left-sided paralysis due to brain tumor and brain surgery resection. DISCHARGE DISPOSITION: Rehabilitation facility. DISCHARGE CONDITION: Fair. DISCHARGE INSTRUCTIONS: The patient is to continue working with Physical Therapy and Occupational Therapy. Continue pain control. Continue DVT prophylaxis. DISCHARGE MEDICATIONS: 1. Tylenol. 2. Atorvastatin. 3. Flexeril. 4. Decadron. 5. Famotidine. 6. Ibuprofen. 7. DuoNeb. 8. Pantoprazole. 9. Dilantin. 10. Ceftriaxone. 11. Tramadol. Job ID: [id number]
== END 2019-04-27 17:29 ==
LOC: ERS 17:14 → SURG A 04-27 01:35
PROVIDERS: ADMIT Surgery; ATTEND Surgery
DX: S32.9XXA Fracture of unspecified parts of lumbosacral spine and pelvis, initial encounter for closed fracture (principal); S22.089A Unspecified fracture of T11-T12 vertebra, initial encounter for closed fracture; G89.11 Acute pain due to trauma; M48.061 Spinal stenosis, lumbar region without neurogenic claudication; I82.409 Acute embolism and thrombosis of unspecified deep veins of unspecified lower extremity; I10 Essential (primary) hypertension; G40.909 Epilepsy, unspecified, not intractable, without status epilepticus; K21.9 Gastro-esophageal reflux disease without esophagitis; E78.5 Hyperlipidemia, unspecified; Z79.01 Long term (current) use of anticoagulants; Z79.899 Other long term (current) drug therapy; Z85.118 Personal history of other malignant neoplasm of bronchus and lung; Z85.51 Personal history of malignant neoplasm of bladder; W07.XXXA Fall from chair, initial encounter
CPT/HCPCS: 70450; 71045; 72125; 72131; 72170; 73502; 80048 ×2; 81003; 83036; 83735; 84100; 85025 ×2; 85610; 85730; 87070; 87077; 87186; 87205; 94640 ×2; 96361; 96374; 96375; 96376; 97139 ×3; 97530; 99285; G0378 ×2; 36415; J0696; J2405; J3010; J3490; J7620